=== PATIENT | female | born 1945 | race Two or more races ===

== ENCOUNTER → 2022-11-26 | Outpatient (CLI) | payer OTHER ==
[~2022-11-26] MED LIST: REGADENOSON 0.4 MG/5 ML SYRG IV ONE
[2022-11-26 08:15] VITALS: BP 191/88; PULSE 56; RESP 20
== END | disposition home or self-care (01) ==
LOC: XYW 07:20
PROVIDERS: ATTEND Internal Medicine
DX: Z01.810 Encounter for preprocedural cardiovascular examination (principal); I11.9 Hypertensive heart disease without heart failure; E11.9 Type 2 diabetes mellitus without complications; E03.9 Hypothyroidism, unspecified; E78.00 Pure hypercholesterolemia, unspecified
CPT/HCPCS: 78452; 93017; A9500; J2785

== ENCOUNTER 2023-02-23 13:02 | Inpatient (IN) | payer OTHER, MEDICAID ==
[~2023-02-23] VITALS: Ht 142.2 cm; Wt 89.3 kg
[2023-02-23] MEDS ORDERED: SODIUM CHLORIDE 0.9% 1,000 ML IV ONE (13:15)
[2023-02-23] MEDS ORDERED: levoFLOXacin 500MG 100 ML IV ONE (13:15)
[2023-02-23] MEDS ORDERED: VANCOMYCIN 1GM/250ML 250 ML IV ONE (13:15)
[2023-02-23 14:03] VITALS: PULSE 67; RESP 18; O2SAT 94
[2023-02-23 14:24] LABS: Basophils # (auto) 0.1 10 ^3/uL (0-0.2); Hemoglobin 10.7 g/dL (12.2-16.2); Neutrophils # (auto) 4.6 10 ^3/uL (1.6-8.6)
[2023-02-23 14:26] LABS: Basophils % (auto) 0.6 % (0.0-2.0); Eosinophils # (auto) 0.3 10 ^3/uL (0-0.8); Eosinophils % (auto) 3.2 % (0.0-7.0); Hematocrit 32.5 % (36.0-46.0); Lymphocytes % (auto) 25.3 % (10.0-50.0); Mean Corpuscular Hemoglobin 26.7 pg (28.0-32.0); Mean Corpuscular Hgb Conc. 32.8 g/dL (32.0-36.0); Mean Corpuscular Volume 81.4 fL (80.0-100.0); Monocytes % (auto) 12.3 % (0.0-12.0); Neutrophils % (auto) 58.6 % (37.0-80.0); Red Cell Distribution Width 18.9 % (11.8-14.3); White Blood Cell 7.8 10^3/uL (4.4-10.8)
[2023-02-23 14:47] LABS: INR 1.1 (0.9-1.15); Partial Thromboplastin Time 39.8 SEC (24.5-34.5); Prothrombin Time 11.5 sec (9.3-11.8)
[2023-02-23 15:12] LABS: Lactic Acid w/Reflex 2.3 mmol/L (0.4-2.0)
[2023-02-23 15:15] LABS: Alanine Aminotransferase 40 U/L (7-40); Albumin 3.8 g/dL (3.2-4.8); Alkaline Phosphatase 175 U/L (46-116); Anion Gap 5 (5-15); Aspartate Aminotransferase 47 U/L (13-40); BUN/Creatinine Ratio 13.8 (10.0-20.0); Bilirubin, Total 0.2 mg/dL (0.2-1.0); Blood Urea Nitrogen 20 mg/dL (9-23); Calcium 9.1 mg/dL (8.7-10.4); Carbon Dioxide 23 mmol/L (20-30); Chloride 96 mmol/L (98-107); Glucose 76 mg/dL (74-106); Sodium 124 mmol/L (136-145); Total Protein 6.9 g/dL (5.7-8.2)
[2023-02-23 15:25] LABS: Potassium 6.4 mmol/L (3.5-5.1)
[2023-02-23 16:27] LABS: Urine Bacteria NONE SEEN /hpf (None Seen); Urine Blood Negative /uL (Negative); Urine Clarity Clear (Clear); Urine Color Colorless (Yellow); Urine Protein, UAD TRACE (Negative); Urine Specific Gravity 1.011 (1.001-1.035); Urine Urobilinogen Normal (Negative); Urine WBC <1 /hpf (0 - 5)
[2023-02-23] MEDS ORDERED: FUROSEMIDE 20 MG/2 ML VIAL IV ONE (16:30)
[2023-02-23] MEDS ORDERED: InsuLIN REG 1unit/0.01ml Soln (100units/ml) IV ONE ×2 (16:30→20:30)
[2023-02-23] MEDS ORDERED: DEXTROSE (50%) 50ML SYRG IV ONE ×2 (16:30→20:30)
[2023-02-23] MEDS ORDERED: SODIUM ZIRCONIUM CYCL 10 GM PAK PO ONE (16:30)
[2023-02-23] MEDS ORDERED: SODIUM BICARBONATE 8.4% INJ 50ML SYRINGE IV ONE ×2 (16:30→20:30)
[2023-02-23] MEDS ORDERED: CALCIUM GLUC 1,000mg/50ml-NS 50 ML IV ONE ×2 (16:30→20:30)
[2023-02-23] MEDS ORDERED: ALBUTEROL SULF 2.5 MG/0.5ML(0.5%) NEB SOLN NEB ONE (16:30)
[2023-02-23] MEDS ORDERED: MORPHINE SULFATE INJ 2 MG/ml SYRG IV PRN (18:30)
[2023-02-23] MEDS ORDERED: LACTULOSE 20Gm/30ML SOLN PO PRN (18:30)
[2023-02-23] MEDS: DOXYCYCLINE 100MG/250ML 250 ML IV SCH (18:30)
[2023-02-23] MEDS: SODIUM CHLORIDE 0.9% 1,000 ML IV SCH (18:30)
[2023-02-23] MEDS ORDERED: NITROGLYCERIN 0.4 MG SL TAB SL PRN (18:30)
[2023-02-23 18:51] LABS: Chloride 96 mmol/L (98-107); Sodium 123 mmol/L (136-145)
[2023-02-23 18:52] LABS: Anion Gap 7 (5-15); Carbon Dioxide 20 mmol/L (20-30)
[2023-02-23 18:53] LABS: Calcium 8.7 mg/dL (8.5-10.1)
[2023-02-23 18:57] LABS: BUN/Creatinine Ratio 15.2 (10.0-20.0); Blood Urea Nitrogen 20 mg/dL (9-23); Glucose 92 mg/dL (74-106)
[2023-02-23 19:48] LABS: Lactic Acid w/Reflex 4.1 mmol/L (0.4-2.0)
[2023-02-23 20:00] VITALS: PULSE 74; RESP 16; O2SAT 93
[2023-02-23 21:49] LABS: Chloride 94 mmol/L (98-107); Potassium 5.1 mmol/L (3.5-5.1); Sodium 123 mmol/L (136-145)
[2023-02-23 21:50] LABS: Anion Gap 6 (5-15); Calcium 8.8 mg/dL (8.7-10.4); Carbon Dioxide 23 mmol/L (20-30)
[2023-02-23 21:55] LABS: BUN/Creatinine Ratio 14.5 (10.0-20.0); Blood Urea Nitrogen 21 mg/dL (9-23); Glucose 158 mg/dL (74-106)
[2023-02-23] MEDS: SENNA 8.6 MG TAB PO SCH (23:40)
[2023-02-24] VITALS (12 sets, daily range): BP systolic 117–160; BP diastolic 22–50; PULSE 69–88; RESP 17–22; TEMP 97.7–98.2; O2SAT 93–99
[2023-02-24 01:30] LABS: Lactic Acid w/Reflex 2.7 mmol/L (0.4-2.0)
[2023-02-24] MEDS: SODIUM CHLORIDE 0.9% 1,000 ML IV SCH ×3 (05:00→18:15)
[2023-02-24] MEDS: DOXYCYCLINE 100MG/250ML 250 ML IV SCH (05:59)
[2023-02-24 07:10] LABS: Basophils # (auto) 0.1 10 ^3/uL (0-0.2); Eosinophils # (auto) 0.2 10 ^3/uL (0-0.8); Neutrophils # (auto) 4.7 10 ^3/uL (1.6-8.6)
[2023-02-24 07:14] LABS: Basophils % (auto) 0.8 % (0.0-2.0); Hematocrit 31.4 % (36.0-46.0); Hemoglobin 10.3 g/dL (12.2-16.2); Lymphocytes # (auto) 1.3 10 ^3/uL (0.4-5.4); Lymphocytes % (auto) 18.5 % (10.0-50.0); Mean Corpuscular Hemoglobin 26.8 pg (28.0-32.0); Mean Corpuscular Hgb Conc. 32.8 g/dL (32.0-36.0); Mean Corpuscular Volume 81.8 fL (80.0-100.0); Monocytes # (auto) 0.9 10 ^3/uL (0-1.3); Monocytes % (auto) 12.7 % (0.0-12.0); Nucleated Red Blood Cells % 0.1 %; Red Blood Cells 3.84 10^6/uL (4.0-5.20); White Blood Cell 7.2 10^3/uL (4.4-10.8)
[2023-02-24 07:22] LABS: Chloride 94 mmol/L (98-107); Sodium 124 mmol/L (136-145)
[2023-02-24 07:23] LABS: Anion Gap 5 (5-15); Calcium 8.9 mg/dL (8.5-10.1); Carbon Dioxide 25 mmol/L (20-30)
[2023-02-24 07:28] LABS: Blood Urea Nitrogen 16 mg/dL (9-23); Glucose 108 mg/dL (74-106)
[2023-02-24 07:34] LABS: Potassium 6.1 mmol/L (3.5-5.1)
[2023-02-24] MEDS ORDERED: SODIUM BICARBONATE 8.4% INJ 50ML SYRINGE IV ONE (08:00)
[2023-02-24] MEDS ORDERED: DEXTROSE (50%) 50ML SYRG IV ONE (08:00)
[2023-02-24] MEDS ORDERED: SODIUM ZIRCONIUM CYCL 10 GM PAK PO ONE (08:00)
[2023-02-24] MEDS ORDERED: InsuLIN REG 1unit/0.01ml Soln (100units/ml) IV ONE (08:00)
[2023-02-24] MEDS ORDERED: ALBUTEROL SULF 2.5 MG/0.5ML(0.5%) NEB SOLN NEB ONE (08:00)
[2023-02-24] MEDS ORDERED: CALCIUM GLUC 1,000mg/50ml-NS 50 ML IV ONE (08:00)
[2023-02-24] MEDS ORDERED: ALBUTEROL SULF 2.5 MG/0.5ML(0.5%) NEB SOLN ONE (08:12)
[2023-02-24] MEDS: ENOXAPARIN SOD 40 MG/0.4 ML SYRINGE SC SCH (09:24)
[2023-02-24] MEDS: FAMOTIDINE 20 MG TAB PO SCH (09:24)
[2023-02-24] MEDS: HYDROcodone-ACET 5/325MG TAB PO PRN (10:57)
[2023-02-24 11:16] LABS: Uric Acid 4.6 mg/dL (3.1-7.8)
[2023-02-24 11:19] LABS: Phosphorus 4.5 mg/dL (2.4-5.1)
[2023-02-24 12:02] LABS: Protein, Urine 34.4 mg/dL (0.0-11.9)
[2023-02-24 12:04] LABS: Creatinine, Urine 37.5 mg/dL (30.0-125.0); Urine Protein/Creatinine Ratio 0.92
[2023-02-24] MEDS: SODIUM ZIRCONIUM CYCL 10 GM PAK PO SCH ×3 (13:03→21:50)
[2023-02-24] MEDS: BUMETANIDE 1mg/4ml VIAL (0.25mg/ml) IV SCH ×2 (13:04→17:53)
[2023-02-24] MEDS: levoFLOXacin 250MG 50 ML IV SCH (17:52)
[2023-02-24] MEDS ORDERED: DEXTROSE (50%) 50ML SYRG IV PRN (18:30)
[2023-02-24 19:03] LABS: Chloride 97 mmol/L (98-107); Potassium 4.8 mmol/L (3.5-5.1); Sodium 128 mmol/L (136-145)
[2023-02-24 19:04] LABS: Anion Gap 5 (5-15); Carbon Dioxide 26 mmol/L (20-30)
[2023-02-24 19:05] LABS: Calcium 9.5 mg/dL (8.7-10.4)
[2023-02-24 19:09] LABS: BUN/Creatinine Ratio 13.6 (10.0-20.0); Blood Urea Nitrogen 15 mg/dL (9-23); Glucose 112 mg/dL (74-106)
[2023-02-24] MEDS: SENNA 8.6 MG TAB PO SCH (21:50)
[2023-02-24] MEDS: LINEZOLID 600MG/300ML 300 ML IV SCH (21:50)
[2023-02-24] MEDS ORDERED: PATIENTS OWN MEDICATION (linezolid 600 MG) IV SCH (22:00)
[2023-02-24] MEDS ORDERED: TEMAZEPAM 15 MG CAP PO ONE (22:00)
[2023-02-24] MEDS: ACCU-CHEK COMFORT CURVE STRIP VI SCH (23:48)
[2023-02-24] MEDS: InsuLIN REG 1unit/0.01ml Soln (100units/ml) SC SCH (23:51)
[2023-02-25] VITALS (8 sets, daily range): BP systolic 153–168; BP diastolic 53–66; PULSE 68–78; RESP 18–20; TEMP 97.9–98.7; O2SAT 93–98
[2023-02-25] MEDS: SODIUM CHLORIDE 0.9% 1,000 ML IV SCH ×2 (04:00→09:17)
[2023-02-25] MEDS: InsuLIN REG 1unit/0.01ml Soln (100units/ml) SC SCH ×4 (06:00→23:49)
[2023-02-25] MEDS: SODIUM ZIRCONIUM CYCL 10 GM PAK PO SCH ×3 (06:05→22:00)
[2023-02-25] MEDS: BUMETANIDE 1mg/4ml VIAL (0.25mg/ml) IV SCH (06:05)
[2023-02-25] MEDS: ACCU-CHEK COMFORT CURVE STRIP VI SCH ×3 (06:06→23:41)
[2023-02-25 07:45] LABS: Eosinophils # (auto) 0.2 10 ^3/uL (0-0.8); Hemoglobin 11.8 g/dL (12.2-16.2); Monocytes # (auto) 0.7 10 ^3/uL (0-1.3); Neutrophils # (auto) 3.4 10 ^3/uL (1.6-8.6)
[2023-02-25 07:46] LABS: Basophils # (auto) 0 10 ^3/uL (0-0.2); Basophils % (auto) 0.8 % (0.0-2.0); Eosinophils % (auto) 3.8 % (0.0-7.0); Hematocrit 35.8 % (36.0-46.0); Lymphocytes # (auto) 1.2 10 ^3/uL (0.4-5.4); Lymphocytes % (auto) 21.1 % (10.0-50.0); Mean Corpuscular Hemoglobin 26.8 pg (28.0-32.0); Mean Corpuscular Volume 81.1 fL (80.0-100.0); Monocytes % (auto) 13.4 % (0.0-12.0); Neutrophils % (auto) 60.9 % (37.0-80.0); Nucleated Red Blood Cells % 0.1 %; Red Blood Cells 4.42 10^6/uL (4.0-5.20); Red Cell Distribution Width 19.2 % (11.8-14.3); White Blood Cell 5.5 10^3/uL (4.4-10.8)
[2023-02-25 07:55] LABS: Chloride 96 mmol/L (98-107); Potassium 4.7 mmol/L (3.5-5.1); Sodium 129 mmol/L (136-145)
[2023-02-25 07:56] LABS: Anion Gap 5 (5-15); Carbon Dioxide 28 mmol/L (20-30)
[2023-02-25 07:57] LABS: Calcium 9.5 mg/dL (8.5-10.1)
[2023-02-25 08:01] LABS: BUN/Creatinine Ratio 11.3 (10.0-20.0); Blood Urea Nitrogen 11 mg/dL (9-23); Glucose 141 mg/dL (74-106)
[2023-02-25] MEDS: ONDANSETRON HCL 4 MG/2 ML VIAL IV PRN (09:09)
[2023-02-25] MEDS: LINEZOLID 600MG/300ML 300 ML IV SCH ×2 (09:09→22:30)
[2023-02-25] MEDS: ENOXAPARIN SOD 40 MG/0.4 ML SYRINGE SC SCH (09:09)
[2023-02-25] MEDS: FAMOTIDINE 20 MG TAB PO SCH (09:09)
[2023-02-25 09:18] LABS: Hepatitis B Surface Antigen Negative (Negative)
[2023-02-25 09:40] LABS: Hepatitis C Antibody Negative (Negative)
[2023-02-25] MEDS ORDERED: VALS40TA2 PO (10:04)
[2023-02-25] MEDS ORDERED: METO25TA5 PO (10:04)
[2023-02-25] MEDS ORDERED: diphenhdrAMINE HCL 25 MG CAP PO PRN (10:15)
[2023-02-25] MEDS: METOPROLOL TARTRATE 25 MG TAB PO SCH ×2 (10:56→22:28)
[2023-02-25] MEDS: levoFLOXacin 250MG 50 ML IV SCH (14:21)
[2023-02-25] MEDS: MORPHINE SULFATE INJ 2 MG/ml SYRG IV PRN (22:36)
[2023-02-25] MEDS: SENNA 8.6 MG TAB PO SCH (23:12)
[2023-02-26] VITALS (9 sets, daily range): BP systolic 127–188; BP diastolic 55–85; PULSE 61–86; RESP 16–18; TEMP 97.4–99; O2SAT 93–97
[2023-02-26] MEDS: ACCU-CHEK COMFORT CURVE STRIP VI SCH ×4 (00:26→18:00)
[2023-02-26] MEDS: hydrALAZINE HCL 10 MG TAB PO PRN ×3 (00:36→19:40)
[2023-02-26 06:57] LABS: Anion Gap 7 (5-15); Carbon Dioxide 25 mmol/L (20-30); Chloride 95 mmol/L (98-107); Potassium 3.8 mmol/L (3.5-5.1); Sodium 127 mmol/L (136-145)
[2023-02-26] MEDS: SODIUM ZIRCONIUM CYCL 10 GM PAK PO SCH (06:59)
[2023-02-26] MEDS: InsuLIN REG 1unit/0.01ml Soln (100units/ml) SC SCH ×3 (06:59→18:00)
[2023-02-26 07:03] LABS: BUN/Creatinine Ratio 11.6 (10.0-20.0); Blood Urea Nitrogen 11 mg/dL (9-23); Glucose 127 mg/dL (74-106)
[2023-02-26] MEDS: ENOXAPARIN SOD 40 MG/0.4 ML SYRINGE SC SCH (09:10)
[2023-02-26] MEDS: FAMOTIDINE 20 MG TAB PO SCH (09:10)
[2023-02-26] MEDS: ONDANSETRON HCL 4 MG/2 ML VIAL IV PRN ×2 (09:10→19:00)
[2023-02-26] MEDS: BUMETANIDE 1mg/4ml VIAL (0.25mg/ml) IV SCH (09:11)
[2023-02-26] MEDS: METOPROLOL TARTRATE 25 MG TAB PO SCH ×2 (09:11→22:20)
[2023-02-26] MEDS: LINEZOLID 600MG/300ML 300 ML IV SCH ×2 (09:12→21:15)
[2023-02-26] MEDS ORDERED: VALS1TAB58 PO ×2 (09:14→09:28)
[2023-02-26] MEDS ORDERED: ATOR20TA50 PO (09:28)
[2023-02-26] MEDS ORDERED: GABA-1250 PO (09:28)
[2023-02-26] MEDS ORDERED: CLON0.5T3 PO (09:28)
[2023-02-26] MEDS ORDERED: DOCU-94 PO (09:28)
[2023-02-26] MEDS ORDERED: CHOL20007 PO (09:28)
[2023-02-26] MEDS ORDERED: APIX5TAB PO (09:28)
[2023-02-26] MEDS ORDERED: FER325T PO (09:28)
[2023-02-26] MEDS ORDERED: METF-372 PO (09:28)
[2023-02-26] MEDS ORDERED: OMEG-20 PO (09:28)
[2023-02-26] MEDS ORDERED: LEVO25TA6 PO (09:28)
[2023-02-26] MEDS ORDERED: GLIP5TAB12 PO (09:28)
[2023-02-26] MEDS ORDERED: VALSARTAN 80 MG TAB PO ONE (12:00)
[2023-02-26] MEDS: levoFLOXacin 250MG 50 ML IV SCH (12:21)
[2023-02-26] MEDS ORDERED: LIDOCAINE 1% (LOCAL ANESTH.) PF 5ml SDV ID ONE (18:00)
[2023-02-26] MEDS ORDERED: clonazePAM 0.5 MG TAB PO PRN (19:38)
[2023-02-26] MEDS: MORPHINE SULFATE INJ 2 MG/ml SYRG IV PRN (21:12)
[2023-02-26] MEDS: ATORVASTATIN 20 MG TAB PO SCH (21:16)
[2023-02-26] MEDS: SODIUM CHLOR 0.9% PF (SALINE LOCK) 10ML VIAL/SYR IV SCH (21:16)
[2023-02-26] MEDS ORDERED: VALSARTAN 80 MG TAB PO SCH (22:00)
[2023-02-26] MEDS: SENNA 8.6 MG TAB PO SCH (22:20)
[2023-02-27] VITALS (9 sets, daily range): BP systolic 156–184; BP diastolic 50–67; PULSE 61–93; RESP 14–19; TEMP 97.4–97.9; O2SAT 92–95
[2023-02-27] MEDS: ACCU-CHEK COMFORT CURVE STRIP VI SCH ×4 (00:32→17:32)
[2023-02-27] MEDS: InsuLIN REG 1unit/0.01ml Soln (100units/ml) SC SCH ×4 (00:32→17:32)
[2023-02-27] MEDS: LEVOTHYROXINE SODIUM 25 MCG TAB PO SCH (06:20)
[2023-02-27] MEDS: GABAPENTIN 300 MG CAP PO SCH ×3 (06:20→21:15)
[2023-02-27 07:03] LABS: Calcium 8.8 mg/dL (8.5-10.1); Chloride 92 mmol/L (98-107); Potassium 3.5 mmol/L (3.5-5.1); Sodium 127 mmol/L (136-145)
[2023-02-27 07:04] LABS: Anion Gap 7 (5-15); Carbon Dioxide 28 mmol/L (20-30)
[2023-02-27 07:09] LABS: BUN/Creatinine Ratio 8.5 (10.0-20.0); Blood Urea Nitrogen 8 mg/dL (9-23); Glucose 131 mg/dL (74-106)
[2023-02-27] MEDS: FERROUS SULFATE 325mg EC TAB PO SCH (08:59)
[2023-02-27] MEDS: VALSARTAN 80 MG TAB PO SCH (09:00)
[2023-02-27] MEDS: hydrALAZINE HCL 10 MG TAB PO PRN (09:00)
[2023-02-27] MEDS: CHOLECALCIFEROL (VITD3) 1,000UNIT=25mCg TAB PO SCH (09:01)
[2023-02-27] MEDS: METOPROLOL TARTRATE 25 MG TAB PO SCH ×2 (09:01→21:15)
[2023-02-27] MEDS: LORATADINE 10 MG TAB PO SCH (09:01)
[2023-02-27] MEDS: FAMOTIDINE 20 MG TAB PO SCH (09:01)
[2023-02-27] MEDS: BUMETANIDE 1mg/4ml VIAL (0.25mg/ml) IV SCH (09:02)
[2023-02-27] MEDS: SODIUM CHLOR 0.9% PF (SALINE LOCK) 10ML VIAL/SYR IV SCH ×2 (09:02→21:23)
[2023-02-27] MEDS: LINEZOLID 600MG/300ML 300 ML IV SCH ×2 (09:04→21:14)
[2023-02-27] MEDS ORDERED: amLODIPine BESYLATE 5 MG TAB PO ONE (09:30)
[2023-02-27] MEDS: APIXABAN 5 MG TAB PO SCH ×2 (10:00→21:14)
[2023-02-27] MEDS ORDERED: GABAPENTIN 300 MG CAP PO SCH (10:00)
[2023-02-27] MEDS: levoFLOXacin 250MG 50 ML IV SCH (11:51)
[2023-02-27] MEDS ORDERED: clonazePAM 0.5 MG TAB PO PRN (15:00)
[2023-02-27] MEDS: ATORVASTATIN 20 MG TAB PO SCH (21:15)
[2023-02-27] MEDS: SENNA 8.6 MG TAB PO SCH (21:15)
[2023-02-28] MEDS: ACCU-CHEK COMFORT CURVE STRIP VI SCH ×5 (00:31→23:47)
[2023-02-28] MEDS: InsuLIN REG 1unit/0.01ml Soln (100units/ml) SC SCH ×5 (00:31→23:47)
[2023-02-28 05:00] VITALS: BP 150/59; PULSE 66; RESP 18; TEMP 97.7; O2SAT 95
[2023-02-28] MEDS: LEVOTHYROXINE SODIUM 25 MCG TAB PO SCH (06:18)
[2023-02-28] MEDS: GABAPENTIN 300 MG CAP PO SCH ×3 (06:19→21:08)
[2023-02-28 06:58] LABS: Chloride 91 mmol/L (98-107); Sodium 125 mmol/L (136-145)
[2023-02-28 06:59] LABS: Anion Gap 9 (5-15); Calcium 8.5 mg/dL (8.7-10.4); Carbon Dioxide 25 mmol/L (20-30)
[2023-02-28 07:04] LABS: BUN/Creatinine Ratio 12.5 (10.0-20.0); Blood Urea Nitrogen 11 mg/dL (9-23); Glucose 142 mg/dL (74-106)
[2023-02-28 08:00] VITALS: PULSE 59; PULSE 66
[2023-02-28 09:00] VITALS: BP 139/52; PULSE 60; RESP 19; TEMP 97.8; O2SAT 96
[2023-02-28] MEDS: BUMETANIDE 1mg/4ml VIAL (0.25mg/ml) IV SCH (10:00)
[2023-02-28] MEDS: LINEZOLID 600MG/300ML 300 ML IV SCH (10:26)
[2023-02-28] MEDS: amLODIPine BESYLATE 5 MG TAB PO SCH (10:27)
[2023-02-28] MEDS: METOPROLOL TARTRATE 25 MG TAB PO SCH ×2 (10:28→21:08)
[2023-02-28] MEDS: FAMOTIDINE 20 MG TAB PO SCH (10:28)
[2023-02-28] MEDS: VALSARTAN 80 MG TAB PO SCH (10:28)
[2023-02-28] MEDS: FERROUS SULFATE 325mg EC TAB PO SCH (10:28)
[2023-02-28] MEDS: APIXABAN 5 MG TAB PO SCH ×2 (10:28→21:09)
[2023-02-28] MEDS: CHOLECALCIFEROL (VITD3) 1,000UNIT=25mCg TAB PO SCH (10:34)
[2023-02-28] MEDS: LORATADINE 10 MG TAB PO SCH (10:34)
[2023-02-28] MEDS: SODIUM CHLOR 0.9% PF (SALINE LOCK) 10ML VIAL/SYR IV SCH ×2 (10:39→21:19)
[2023-02-28] MEDS: levoFLOXacin 250MG 50 ML IV SCH (12:00)
[2023-02-28 13:00] VITALS: BP 138/69; PULSE 74; RESP 19; TEMP 98; O2SAT 94
[2023-02-28] MEDS ORDERED: POTASSIUM CHL 20 Meq TABLET PO ONE (13:15)
[2023-02-28] MEDS ORDERED: POTASSIUM CHLORIDE 40 MEQ, LIDOCAINE 1% (LOCAL ANESTH.) 4 ML in SODIUM CHL 0.9% 250 ML IV ONE (13:30)
[2023-02-28 17:00] VITALS: BP 129/45; PULSE 66; RESP 18; TEMP 97.1; O2SAT 94
[2023-02-28] MEDS: UREA 15gm PO Powder PKG PO SCH (17:24)
[2023-02-28 20:00] VITALS: PULSE 80
[2023-02-28] MEDS: hydrALAZINE HCL 10 MG TAB PO PRN (20:19)
[2023-02-28] MEDS: SENNA 8.6 MG TAB PO SCH (20:51)
[2023-02-28] MEDS: HYDROcodone-ACET 5/325MG TAB PO PRN (21:08)
[2023-02-28] MEDS: ATORVASTATIN 20 MG TAB PO SCH (21:09)
[2023-03-01] VITALS (8 sets, daily range): BP systolic 128–154; BP diastolic 49–71; PULSE 65–83; RESP 16–19; TEMP 97.6–98.7; O2SAT 92–97
[2023-03-01 05:34] LABS: Basophils # (auto) 0.1 10 ^3/uL (0-0.2); Basophils % (auto) 0.9 % (0.0-2.0); Eosinophils # (auto) 0.3 10 ^3/uL (0-0.8); Neutrophils # (auto) 4.8 10 ^3/uL (1.6-8.6); Red Cell Distribution Width 18.1 % (11.8-14.3)
[2023-03-01 05:36] LABS: Calcium 8.9 mg/dL (8.5-10.1); Chloride 97 mmol/L (98-107); Potassium 3.6 mmol/L (3.5-5.1)
[2023-03-01 05:37] LABS: Anion Gap 8 (5-15); Carbon Dioxide 26 mmol/L (20-30); Eosinophils % (auto) 3.4 % (0.0-7.0); Hematocrit 34.3 % (36.0-46.0); Hemoglobin 11.4 g/dL (12.2-16.2); Lymphocytes % (auto) 24.2 % (10.0-50.0); Mean Corpuscular Hemoglobin 26.9 pg (28.0-32.0); Mean Corpuscular Hgb Conc. 33.3 g/dL (32.0-36.0); Mean Corpuscular Volume 80.8 fL (80.0-100.0); Neutrophils % (auto) 59.5 % (37.0-80.0); Red Blood Cells 4.25 10^6/uL (4.0-5.20); White Blood Cell 8.1 10^3/uL (4.4-10.8)
[2023-03-01 05:43] LABS: BUN/Creatinine Ratio 37.6 (10.0-20.0); Glucose 129 mg/dL (74-106)
[2023-03-01 06:04] LABS: Blood Urea Nitrogen 35 mg/dL (9-23); Sodium 131 mmol/L (136-145)
[2023-03-01] MEDS: LEVOTHYROXINE SODIUM 25 MCG TAB PO SCH (06:20)
[2023-03-01] MEDS: GABAPENTIN 300 MG CAP PO SCH ×3 (06:20→21:16)
[2023-03-01] MEDS: ACCU-CHEK COMFORT CURVE STRIP VI SCH ×4 (06:24→23:18)
[2023-03-01] MEDS: InsuLIN REG 1unit/0.01ml Soln (100units/ml) SC SCH ×4 (06:25→23:20)
[2023-03-01] MEDS ORDERED: PATIENTS OWN MEDICATION (ertapenem 1 GM) IV SCH (10:00)
[2023-03-01] MEDS ORDERED: FUROSEMIDE 40 MG/4 ML VIAL IV SCH (10:00)
[2023-03-01] MEDS ORDERED: ERTAPENEM SOD INJ 1 GM in SODIUM CHL 0.9% 50 ML IV SCH (10:00)
[2023-03-01] MEDS: VALSARTAN 80 MG TAB PO SCH (10:12)
[2023-03-01] MEDS: FAMOTIDINE 20 MG TAB PO SCH (10:12)
[2023-03-01] MEDS: CHOLECALCIFEROL (VITD3) 1,000UNIT=25mCg TAB PO SCH (10:12)
[2023-03-01] MEDS: HYDROcodone-ACET 5/325MG TAB PO PRN (10:12)
[2023-03-01] MEDS: FERROUS SULFATE 325mg EC TAB PO SCH (10:12)
[2023-03-01] MEDS: LORATADINE 10 MG TAB PO SCH (10:12)
[2023-03-01] MEDS: amLODIPine BESYLATE 5 MG TAB PO SCH (10:13)
[2023-03-01] MEDS: APIXABAN 5 MG TAB PO SCH ×2 (10:13→21:16)
[2023-03-01] MEDS: METOPROLOL TARTRATE 25 MG TAB PO SCH ×2 (10:13→21:23)
[2023-03-01] MEDS: SODIUM CHLOR 0.9% PF (SALINE LOCK) 10ML VIAL/SYR IV SCH ×2 (10:14→21:23)
[2023-03-01] MEDS: UREA 15gm PO Powder PKG PO SCH (10:20)
[2023-03-01] MEDS ORDERED: SOD CHL 0.9%/ KCL 20MEQ 1,000 ML IV SCH (11:00)
[2023-03-01 12:49] LABS: Magnesium 1.5 mg/dL (1.6-2.6)
[2023-03-01] MEDS ORDERED: POTASSIUM CHL 20 Meq TABLET PO ONE (15:30)
[2023-03-01] MEDS: ATORVASTATIN 20 MG TAB PO SCH (21:16)
[2023-03-02 04:57] VITALS: BP 152/63; PULSE 78; RESP 19; TEMP 98; O2SAT 92
[2023-03-02 06:10] LABS: Chloride 101 mmol/L (98-107); Potassium 4.3 mmol/L (3.5-5.1); Sodium 133 mmol/L (136-145)
[2023-03-02 06:12] LABS: Calcium 9.1 mg/dL (8.7-10.4)
[2023-03-02 06:16] LABS: Glucose 151 mg/dL (74-106)
[2023-03-02 06:17] LABS: BUN/Creatinine Ratio 38.5 (10.0-20.0); Blood Urea Nitrogen 37 mg/dL (9-23)
[2023-03-02] MEDS: LEVOTHYROXINE SODIUM 25 MCG TAB PO SCH (06:22)
[2023-03-02] MEDS: ACCU-CHEK COMFORT CURVE STRIP VI SCH ×2 (06:22→15:32)
[2023-03-02] MEDS: GABAPENTIN 300 MG CAP PO SCH ×2 (06:22→15:35)
[2023-03-02] MEDS: InsuLIN REG 1unit/0.01ml Soln (100units/ml) SC SCH ×2 (06:24→12:00)
[2023-03-02 07:03] LABS: Anion Gap 8 (5-15); Carbon Dioxide 24 mmol/L (20-30)
[2023-03-02 08:00] VITALS: PULSE 75; PULSE 76
[2023-03-02 09:39] VITALS: BP 130/52; PULSE 72; RESP 19; TEMP 97.5; O2SAT 98
[2023-03-02] MEDS: UREA 15gm PO Powder PKG PO SCH (10:00)
[2023-03-02] MEDS ORDERED: CEFTRIAXONE SODIUM 2 GM in D5W 5% 100 ML IV SCH (10:00)
[2023-03-02] MEDS: SODIUM CHLOR 0.9% PF (SALINE LOCK) 10ML VIAL/SYR IV SCH (10:34)
[2023-03-02] MEDS: FAMOTIDINE 20 MG TAB PO SCH (10:48)
[2023-03-02] MEDS: VALSARTAN 80 MG TAB PO SCH (10:48)
[2023-03-02] MEDS: LORATADINE 10 MG TAB PO SCH (10:48)
[2023-03-02] MEDS: CHOLECALCIFEROL (VITD3) 1,000UNIT=25mCg TAB PO SCH (10:49)
[2023-03-02] MEDS: APIXABAN 5 MG TAB PO SCH (10:49)
[2023-03-02] MEDS: FERROUS SULFATE 325mg EC TAB PO SCH (10:50)
[2023-03-02] MEDS: amLODIPine BESYLATE 5 MG TAB PO SCH (10:50)
[2023-03-02] MEDS: METOPROLOL TARTRATE 25 MG TAB PO SCH (10:50)
[2023-03-02 11:49] VITALS: BP 148/86; PULSE 67; RESP 20; TEMP 36.4; O2SAT 94
[2023-03-02 12:55] VITALS: BP 126/67; PULSE 88; RESP 19; TEMP 97.9; O2SAT 94
[2023-03-02] MEDS ORDERED: VALS1TAB56 PO (13:39)
[2023-03-02] MEDS ORDERED: AMLO1TAB23 PO (13:39)
[2023-03-02] MEDS ORDERED: CHL4PW PO (13:39)
[2023-03-02] MEDS ORDERED: LACTCAP35 OR (14:21)
[2023-03-02] MEDS: HYDROcodone-ACET 5/325MG TAB PO PRN (15:32)
[2023-03-02] MEDS ORDERED: CEFTRIAXONE SODIUM 2 GM in D5W 5% 100 ML IV ONE (16:00)
[2023-03-03 00:06] LABS: Cortisol Free ug/L Ur 14 ug/L (Undefined)
[2023-03-03] MEDS ORDERED: CEFTRIAXONE SODIUM 2 GM in D5W 5% 100 ML IV SCH (10:00)
== END 2023-03-02 18:25 | disposition home health service (06) | DRG 602 ==
LOC: EDBD 13:02 → ER 13:02 → TELE 18:37 → TELE-CENTR 02-24 03:28
PROVIDERS: ADMIT Hospitalist; ATTEND Hospitalist
PROC: 02HV33Z Insertion of Infusion Device into Superior Vena Cava, Percutaneous Approach (ICD-10-PCS; principal; 2023-02-26)
PROC: B548ZZA Ultrasonography of Superior Vena Cava, Guidance (ICD-10-PCS; 2023-02-26)
PROC: 05HF33Z Insertion of Infusion Device into Left Cephalic Vein, Percutaneous Approach (ICD-10-PCS; 2023-03-02)
PROC: B54NZZA Ultrasonography of Left Upper Extremity Veins, Guidance (ICD-10-PCS; 2023-03-02)
DX: L03.116 Cellulitis of left lower limb (principal); N17.0 Acute kidney failure with tubular necrosis; E87.1 Hypo-osmolality and hyponatremia; E87.20 Acidosis, unspecified; Z68.41 Body mass index [BMI] 40.0-44.9, adult; D63.1 Anemia in chronic kidney disease; E11.22 Type 2 diabetes mellitus with diabetic chronic kidney disease; E66.01 Morbid (severe) obesity due to excess calories; E87.5 Hyperkalemia; Z96.652 Presence of left artificial knee joint; E03.9 Hypothyroidism, unspecified; E78.00 Pure hypercholesterolemia, unspecified; I12.9 Hypertensive chronic kidney disease with stage 1 through stage 4 chronic kidney disease, or unspecified chronic kidney disease; N18.2 Chronic kidney disease, stage 2 (mild); Z88.0 Allergy status to penicillin; Z88.5 Allergy status to narcotic agent; Z90.49 Acquired absence of other specified parts of digestive tract; Z79.84 Long term (current) use of oral hypoglycemic drugs
CPT/HCPCS: 36415; 36569; 71045; 73700; 74176; 76775; 80048; 80053; 81001; 82306; 82530; 82533; 82570; 82962; 83605; 83735; 83880; 83930; 83935; 83970; 84100; 84132; 84156; 84300; 84484; 84550; 85025; 85610; 85730; 86803; 87040; 87045; 87077; 87081; 87186; 87205; 87340; 87427; 93306; 93970; 94640; 96365; 96367; 96368; 96375; 97110; 97116; 97163; 97530; 99291; G0378; J0696; J1335; J1815; J1956; J2001; J2405; J3490; J7060

== ENCOUNTER 2024-04-17 14:50 | Inpatient (IN) | payer OTHER, MEDICAID ==
[~2024-04-17] VITALS: Ht 162.6 cm; Wt 84.2 kg
[2024-04-17] MEDS: SODIUM CHLORIDE 0.9% 1,000 ML IV SCH (01:30)
[~2024-04-17 14:50] MED LIST changes: +AMLO1TAB23 PO; +APIX5TAB PO; +ATOR20TA50 PO; +CHL4PW PO; +CHOL20007 PO; +CLON0.5T3 PO; +FER325T PO; +GABA-1250 PO; +GLIP5TAB21 PO; +LACTCAP35 OR; +LEVO25TA6 PO; +METF-372 PO; +METO25TA5 PO; +OMEG-20 PO; -REGADENOSON 0.4 MG/5 ML SYRG IV ONE; +VALS1TAB56 PO
[2024-04-17] MEDS: SODIUM CHLORIDE 0.9% 1,000 ML IV ONE ×2 (15:45→21:17)
--- NOTE | 2024-04-17 16:35 | ED.PDOC ---
GI ASSESSMENT HPI Comments 78-year-old female presented with complaints of GI bleed. She recently had a colonoscopy last which revealed 7 mm polyp in the sigmoid colon that was removed, 3 mm rectal polyp which was removed, and nonbleeding internal hemorrhoids. She started having clots from the rectum on Wednesday visible on wiping, also had blood mixed in the stools. She also had complaints of lower abdominal pain and dizziness for last one day. Yesterday patient found her underwear stained with blood. She has stopped taking Eliquis eight days before the procedure but did not resume after the procedure. She took alendronate on Wednesday. She stopped taking NSAIDs after the procedure. She denied any constipation, diarrhea, melena, chest pain, shortness of breath, palpitations, generalized weakness, hematemesis. Past medical history Diabetes mellitus type 2, hypertension, hypothyroidism, hyperlipidemia, CKD, osteoporosis Past surgical history Cholecystectomy Hernia repair Left knee arthroplasty Medication history Alendronate, ondansetron, albuterol, cetirizine, pantoprazole, valsartan, Jardiance, Lasix, donepezil, atorvastatin, metoprolol, levothyroxine, amlodipine, glipizide, clonazepam, pregabalin, cyclobenzaprine, Eliquis Social history Denied smoking, alcohol, marijuana or any other drug intake Allergic history Penicillins, tramadol Family history Noncontributory Review of system As addressed in HPI Examination General Appearance: Alert, Oriented X3, Cooperative, No acute distress EYES : no erythema, pupils reactive, no scleral icterus, no tearing visible Respiratory: Bilateral air entry present, no wheezes, no crackles Cardiovascular: Regular rate, Normal S1, Normal S2, no S3, no S4, no murmurs Abdominal: Mild abdominal tenderness, no guarding, no rigidity, no rebound tenderness Extremities: No cyanosis, No edema, Normal pulses, No tenderness/swelling Skin: No rashes, No breakdown Neuro: Normal speech and tone, no nystagmus, cranial nerves grossly intact Chief Complaint: GI Bleed Time Seen by MD: 15:59 Primary Care Provider: JUANJO Reviewed Notes: Nurses Notes, Medications, Allergies Allergies: Coded Allergies: Tramadol (Verified Allergy, Severe, 02/23/23) Penicillins (Verified Allergy, Mild, 03/02/23) Experienced hives over 10 years and previously on amoxicillin x 3 days with no reaction Home Meds Active Scripts Lactobacillus (PROBIOTIC) Cap, 1 CAP OR DAILY, #30 CAP Prov:PANDA CHANEY MD 03/02/23 Cholestyramine (QUESTRAN POWDER) 4 Gm Pw, 4 GM PO Q8HPRN PRN, #30 POW give as needed for more than 3 large loose stools in a day Prov:PANDA CHANEY MD 03/02/23 Valsartan (Valsartan) 40 Mg Tab, 40 MG PO DAILY, #30 TAB Prov:PANDA CHANEY MD 03/02/23 Amlodipine Besylate (Amlodipine Besylate) 10 Mg Tab, 1 TAB PO DAILY, #90 TAB 1 Refill Prov:PANDA CHANEY MD 03/02/23 Reported Medications Clonazepam (KlonoPIN TABLET) 0.5 Mg Tb, 1 TAB PO DAILY, #30 TAB 02/26/23 Empire-3 Fatty Acids (FISH OIL) 1,000 Mg Cap, 1000 MG PO DAILY, CAP 02/26/23 Cholecalciferol (VITAMIN D3) 2,000 Unit Tab, 26463 UNIT PO DAILY, TAB 02/26/23 Glipizide (Glipizide) 5 Mg Tab, 1 TAB PO BID, #60 TAB 3 Refills 02/26/23 Atorvastatin Calcium (ATORVASTATIN CALCIUM) 20 Mg Tab, 1 TAB PO DAILY, #30 TAB 5 Refills 02/26/23 Ferrous Sulfate (FERROUS SULFATE) 325 Mg Tb, 325 MG PO DAILY, TAB 02/26/23 Gabapentin (Gabapentin) 300 Mg Cap, 1 CAP PO DAILY, #90 CAP 5 Refills 02/26/23 Apixaban Base (ELIQUIS) 5 Mg Tab, 5 MG PO BID, TAB 02/26/23 Metformin Hydrochloride (Metformin Hcl) 1,000 Mg Tab, 1 TAB PO BID, #60 TAB 5 Refills 02/26/23 Levothyroxine Sodium (Levothyroxine Sodium) 25 Mcg Tab, 1 TAB PO DAILY, #30 TAB 5 Refills 02/26/23 Metoprolol Tartrate (Metoprolol Tartrate) 25 Mg Tab, 50 MG PO BID for 30 Days, MG 02/25/23 Information Source: Patient, Relative (Child) Mode of Arrival: Wheelchair Was a procedure done? Was a procedure done?: No GI differential Dx Differential Diagnosis: Appendicitis, Aortic dissection, Bowel Obstruction, Cholangitis, Cholecystitis, Constipation, Diverticular disease, Gastritis/PUD, GI hemorrhage, Ischemic Bowel, UTI, Electrolyte Imbalance, Impaction, Ischemic Bowel X-Ray, Labs, Meds, VS Vital Signs Date Time Temp Pulse Resp B/P (MAP) Pulse Ox O2 Delivery O2 Flow Rate FiO2 04/17/24 17:03 97.6 60 16 122/39 (66) 95 97.6 04/17/24 17:03 60 16 95 Room Air* 0 21 04/17/24 15:15 55 04/17/24 14:58 97.5 58 20 117/34 (61) 95 Lab Test 04/17/24 16:50 04/17/24 15:04 Range/Units White Blood Count 6.0 4.4-10.8 10^3/uL Red Blood Count 3.98 L 4.0-5.20 10^6/uL Hemoglobin 8.5 L 12.2-16.2 g/dL Hematocrit 27.6 L 36.0-46.0 % Mean Corpuscular Volume 69.2 L 80.0-100.0 fL Mean Corpuscular Hemoglobin 21.3 L 28.0-32.0 pg Mean Corpuscular Hemoglobin Concent 30.8 L 32.0-36.0 g/dL Red Cell Distribution Width 17.0 H 11.8-14.3 % Platelet Count 238 140-450 10^3/uL Mean Platelet Volume 8.3 6.9-10.8 fL Neutrophils (%) (Auto) 47.8 37.0-80.0 % Lymphocytes (%) (Auto) 35.8 10.0-50.0 % Monocytes (%) (Auto) 11.9 0.0-12.0 % Eosinophils (%) (Auto) 3.0 0.0-7.0 % Basophils (%) (Auto) 1.5 0.0-2.0 % Neutrophils # (Auto) 2.9 1.6-8.6 10 ^3/uL Lymphocytes # (Auto) 2.2 0.4-5.4 10 ^3/uL Monocytes # (Auto) 0.7 0-1.3 10 ^3/uL Eosinophils # (Auto) 0.2 0-0.8 10 ^3/uL Basophils # (Auto) 0.1 0-0.2 10 ^3/uL Nucleated Red Blood Cells 0.0 % Platelet Estimate Adequate Hypochromasia (manual) Slight Microcytosis Slight Prothrombin Time 11.4 9.3-11.8 sec Prothrombin Time INR 1.08 0.9-1.15 Activated Partial Thromboplast Time 27.9 24.5-34.5 SEC Sodium Level 136 136-145 mmol/L Potassium Level 4.7 3.5-5.1 mmol/L Chloride Level 104 98-107 mmol/L Carbon Dioxide Level 26 20-31 mmol/L Anion Gap 6 5-15 Blood Urea Nitrogen 21 9-23 mg/dL Creatinine 1.17 H 0.550-1.02 mg/dL Glomerular Filtration Rate Calc 48 >90 mL/min BUN/Creatinine Ratio 17.9 10.0-20.0 Serum Glucose 177 H 74-106 mg/dL Lactic Acid Level 2.3 *H 0.4-2.0 mmol/L Calcium Level 9.4 8.7-10.4 mg/dL Iron Level 26 L 50-170 ug/dL Total Iron Binding Capacity 392 250-425 ug/dL Percent Iron Saturation 6.6 L 15-50 % Total Bilirubin 0.3 0.2-1.0 mg/dL Aspartate Amino Transferase (AST) 34 13-40 U/L Alanine Aminotransferase (ALT) 33 7-40 U/L Alkaline Phosphatase 103 46-116 U/L Troponin I High Sensitivity 4 </=34 ng/L B-Type Natriuretic Peptide 146.90 0-100 pg/mL Total Protein 6.0 5.7-8.2 g/dL Albumin 3.7 3.2-4.8 g/dL Vitamin B12 Level Pending Urine Color Light-brown Yellow Urine Clarity Turbid H Clear Urine pH 5.5 5.0-9.0 Urine Specific [place] 1.018 1.001-1.035 Urine Protein 1+ H Negative Urine Ketones Negative Negative Urine Blood 3+ H Negative /uL Urine Nitrite Negative Negative Urine Bilirubin Negative Negative Urine Urobilinogen Normal Negative mg/dL Urine Leukocyte Esterase 2+ Negative /uL Urine RBC 1016 0 - 4 /hpf Urine WBC 101 0 - 5 /hpf Urine Squamous Epithelial Cells Few <5 /hpf Urine Bacteria None seen None Seen /hpf Urine Glucose 4+ H Normal mg/dL Current Medications Medications (Trade) Dose Ordered Sig/Jeannie Route Start Time Stop Time Status Last Admin Pantoprazole Sodium (Protonix) 40 mg ONCE ONCE IV 04/17/24 15:45 04/17/24 16:09 DC 04/17/24 17:03 Sodium Chloride 1,000 ml @ 1,000 mls/hr Q1H ONCE IV 04/17/24 19:15 04/17/24 20:14 DC 04/17/24 21:17 Time of 1ST Reevaluation: 19:11 Reevaluation 1ST: Unchanged Patient Education/Counseling: Diagnosis, Treatment Family Education/Counseling: Diagnosis, Treatment Comments MDM Patient presented with the above rectal bleed, dizziness. workup was initiated. Patient was given: IV fluids. Patient's lab revealed hemoglobin of 8.5, last labs in the record from February 222022 revealed hemoglobin of 11.4. Repeat H&H was ordered after IV fluids which revealed hemoglobin of 8.6 CT abdomen/pelvis without IV contrast revealed 1. No findings to suggest bowel obstruction. 2. Gallbladder has been surgically removed. 3. No nephrolithiasis or hydronephrosis. 4. 5.4 cm fat containing umbilical hernia. 5. No findings of diverticulitis. Patient has been observed in the ED adequate length of time to insure improvement/stability. patient was admitted to the medicine team for further evaluation and treatment of their presentation. All the reports of any imaging studies that were ordered by myself were reviewed by myself. Departure 1 Departure Time of Disposition: 19:11 Impression: Primary Impression: Rectal bleed Additional Impression: Acute anemia Disposition: ADMITTED INPATIENT Admit to: Tele Condition: Guarded KAVON MALDONADO RESIDENT Apr 17, 2024 16:35
[2024-04-17 16:43] LABS: Urine Bacteria None Seen /hpf (None Seen)
--- NOTE | 2024-04-17 16:51 | DVH ---
Exam: CT CT AB PEL WO CON-NO ORAL OR IV History: abd pain, rectal bleed Comparison Study: None available at time of dictation. TECHNIQUE: Multidetector CT of the abdomen was performed from lung bases to pubic symphysis. Imaging was performed without IV contrast. Axial, coronal and sagittal multiplanar reformats were obtained fr om the axial data set by the technologist. Radiation Dose Information: CT Dose: CTDI volume is 19.73 mGy. Dose-length product is 1007.41 mGy*cm FINDINGS: Evaluation of solid organs is limited due to lack of intravenous contrast use. Findings: Lung Bases: No acute or significant lung base finding. Normal heart size. No pleural or pericardial effusion. Liver: The liver is normal in size. No focal lesions. Gallbladder and Biliary Tree: Gallbladder has been surgically removed. Spleen: Unremarkable Pancreas: The pancreas is grossly normal in appearance. Adrenal Glands: Unremarkable Kidneys: Kidneys are grossly normal without calculi or hydronephrosis. Bladder: Grossly unremarkable for degree of distention. Bowel: The stomach is grossly normal in appearance. Small bowel and colon are normal in caliber and d istribution. The appendix is not visualized; however, no secondary findings of acute appendicitis id entified. Ascites: Absent Lymphadenopathy: No mesenteric, retroperitoneal or periportal lymphadenopathy. Abdominal Wall and Mesentery: 5.4 cm fat containing umbilical hernia. Vasculature: The visualized abdominal aorta is normal in size and caliber. Evaluation of abdominal a nd pelvic vessels is limited due to lack of intravenous contrast. Pelvic Organs: Unremarkable Musculoskeletal: No aggressive focal bony lesions, acute fractures or dislocation. Soft tissues: Unremarkable IMPRESSION: 1. No findings to suggest bowel obstruction. 2. Gallbladder has been surgically removed. 3. No nephrolithiasis or hydronephrosis. 4. 5.4 cm fat containing umbilical hernia. 5. No findings of diverticulitis. Radiation optimization: All CT scans at this facility use at least one of these dose optimization te chniques: automated exposure control mA and/or kV adjustment per patient size (includes targeted exa ms where dose is matched to clinical indication) or iterative reconstruction.
[2024-04-17 17:03] VITALS: PULSE 60; RESP 16; O2SAT 95
[2024-04-17] MEDS: PANTOPRAZOLE 40 MG/10 ML VIAL INJ IV ONE (17:03)
[2024-04-17 17:09] LABS: Urine Blood 3+ /uL (Negative); Urine Clarity Turbid (Clear); Urine Color Light-Brown (Yellow); Urine Protein, UAD 1+ (Negative); Urine Specific Gravity 1.018 (1.001-1.035); Urine Urobilinogen Normal (Negative); Urine WBC 101 /hpf (0 - 5); Urine pH 5.5 (5.0-9.0)
[2024-04-17 17:20] LABS: Basophils # (auto) 0.1 10 ^3/uL (0-0.2); Eosinophils # (auto) 0.2 10 ^3/uL (0-0.8); Hemoglobin 8.5 g/dL (12.2-16.2); Monocytes # (auto) 0.7 10 ^3/uL (0-1.3)
[2024-04-17 17:22] LABS: Basophils % (auto) 1.5 % (0.0-2.0); Hematocrit 27.6 % (36.0-46.0); Lymphocytes # (auto) 2.2 10 ^3/uL (0.4-5.4); Lymphocytes % (auto) 35.8 % (10.0-50.0); Mean Corpuscular Hemoglobin 21.3 pg (28.0-32.0); Mean Corpuscular Hgb Conc. 30.8 g/dL (32.0-36.0); Mean Corpuscular Volume 69.2 fL (80.0-100.0); Monocytes % (auto) 11.9 % (0.0-12.0); Neutrophils # (auto) 2.9 10 ^3/uL (1.6-8.6); Neutrophils % (auto) 47.8 % (37.0-80.0); Platelet Count (auto) 238 10^3/uL (140-450); Red Blood Cells 3.98 10^6/uL (4.0-5.20)
[2024-04-17 17:34] LABS: INR 1.08 (0.9-1.15); Partial Thromboplastin Time 27.9 SEC (24.5-34.5); Prothrombin Time 11.4 sec (9.3-11.8)
[2024-04-17 17:44] LABS: Alanine Aminotransferase 33 U/L (7-40); Albumin 3.7 g/dL (3.2-4.8); Alkaline Phosphatase 103 U/L (46-116); Anion Gap 6 (5-15); Aspartate Aminotransferase 34 U/L (13-40); BUN/Creatinine Ratio 17.9 (10.0-20.0); Blood Urea Nitrogen 21 mg/dL (9-23); Calcium 9.4 mg/dL (8.7-10.4); Carbon Dioxide 26 mmol/L (20-31); Chloride 104 mmol/L (98-107); Glucose 177 mg/dL (74-106); Potassium 4.7 mmol/L (3.5-5.1); Sodium 136 mmol/L (136-145)
[2024-04-17 17:45] LABS: Bilirubin, Total 0.3 mg/dL (0.2-1.0)
[2024-04-17 17:49] LABS: Lactic Acid w/Reflex 2.3 mmol/L (0.4-2.0)
[2024-04-17 17:51] LABS: Hypochromia Slight; Platelet Estimate Adequate
[2024-04-17] MEDS ORDERED: NITROGLYCERIN 0.4 MG SL TAB SL PRN (21:30)
[2024-04-17] MEDS ORDERED: DEXTROSE (50%) 50ML SYRG IV PRN (21:30)
[2024-04-17] MEDS ORDERED: MORPHINE SULFATE INJ 2 MG/ml SYRG IV PRN (21:30)
[2024-04-17 22:03] LABS: Hematocrit 28.4 % (36.0-46.0); Hemoglobin 8.6 g/dL (12.2-16.2)
[2024-04-17 22:58] LABS: % Iron Saturation 6.6 % (15-50)
[2024-04-17 23:43] VITALS: BP 127/49; PULSE 62; RESP 18; TEMP 97.6; O2SAT 98
[2024-04-18] VITALS (8 sets, daily range): BP systolic 117–151; BP diastolic 46–67; PULSE 59–71; RESP 16–20; TEMP 97.6–98; O2SAT 91–98
--- NOTE | 2024-04-18 00:50 | DVHHP2 ---
JOSE RAMON LÓPEZ SERVICE DESK TEAM LEAD 04/18/24 0050: History of Present Illness Reason for Visit: Rectal bleeding History of Present Illness 78-year-old female with past medical history of hypertension, DM, Hyp erlipidemia, CKD III, Anemia, Total left knee arthroplasty Presents with complaints Of bright red rectal bleeding That began on Wednesday. Patient recently underwent Colonoscopy with polypectomy x2, previous 04/13/24. Patient states she first noticed red blood mixed with stool on wednesday. Patient then noticed blood clots with bright red blood. Patient also endorsed she has had 5 episodes of bright red rectal bleeding on the day of arrival to the ED. Daughter Estimated about 250ml blood in each. Patient's daughter states the patient was placed on Eliquis prophylactically after having total left knee arthroplasty. Stopped taking eliquis prior to procedure and has not resumed it. Patient also endorses dizziness And lower abdominal pain At this time. Denies fevers, chills, Shortness of breath, chest pain, palpitations, Nausea, vomiting, hematemesis. Cardiovascular: HTN, hyperipidemia Heme/Onc: Anemia NOS Renal/: Chronic renal insuff Endocrine: Diabetes Review of Systems Constitutional: Yes: Weakness, Other (Dizziness); No: Fever, Chills, Sweats, Malaise Eyes: No: Pain, Vision change, Conjunctivae inflammation, Eyelid inflammation, Other, Redness ENT: No: Ear pain, Ear discharge, Nose pain, Nose discharge, Nose congestion, Mouth pain, Mouth swelling, Throat pain, Throat swelling, Other Respiratory: No: Cough, Dry, Shortness of breath, SOB with excertion, Wheezing, Hemoptysis, Pleuritic Pain, Sputum, Wheezing, Other Cardiovascular: No: Chest Pain, Palpitations, Orthopnea, Paroxysmal Noc. Dyspnea, Edema, Lt Headedness, Other Gastrointestinal: Hematochezia; No: Nausea, Vomiting, Diarrhea, Constipation, Melena, Other Genitourinary: No Dysuria, No Frequency, No Incontinence; Hematuria; No Retention, No Other Musculoskeletal: No: other, neck pain, shoulder pain, arm pain, back pain, hand pain, leg pain, foot pain Skin: No: Rash, Lesions, Jaundice, Bruising, Other Neurological: No: Weakness, Numbness, Incoordination, Change in speech, Confusion, Seizures, Other Allergies: Coded Allergies: Tramadol (Verified Allergy, Severe, 10/3/23) Penicillins (Verified Allergy, Mild, 03/02/23) Experienced hives over 10 years and previously on amoxicillin x 3 days with no reaction Medications Current Medications Medications Dose Ordered Sig/Jeannie Route Start Time Stop Time Status Last Admin Dose Admin Sodium Chloride 1,000 ml @ 60 mls/hr [id number] IV 04/17/24 21:30 04/18/24 14:09 Acetaminophen 650 mg Q6HP PRN PO 04/17/24 21:30 Acetaminophen/ Hydrocodone Bitart 1 tab Q4HP PRN PO 04/17/24 21:30 Ondansetron HCl 4 mg Q4HP PRN IV 04/17/24 21:30 Nitroglycerin 0.4 mg Q5MINP PRN SL 04/17/24 21:30 Morphine Sulfate 2 mg Q30M PRN IV 04/17/24 21:30 Diagnostic Test (Pha) 1 strip Q6HR 04/18/24 00:00 Insulin Human Regular Q6HR SC 04/18/24 00:00 Dextrose 50 ml UD PRN IV 04/17/24 21:30 Pantoprazole Sodium 40 mg DAILY IV 04/18/24 10:00 Levofloxacin 50 ml @ 50 mls/hr DAILY IV 04/18/24 10:00 UNV Exam Vital Signs Vital Signs Date Time Temp Pulse Resp B/P (MAP) Pulse Ox O2 Delivery O2 Flow Rate FiO2 04/17/24 21:32 98.0 76 17 141/52 (81) 96 98.0 04/17/24 17:03 Room Air* 0 21 General Appearance: Alert, Oriented X3, Cooperative, mild distress HEENT: Atraumatic, PERRLA, EOMI Respiratory: Clear to auscultation, Normal air movement Cardiovascular: Regular rate, Normal S1, Normal S2 Abdominal: Normal bowel sounds, Soft, No tenderness Extremities: No clubbing, No cyanosis, No edema Skin: No rashes, No breakdown Neuro: Normal speech Psych/Mental Status: Mental status NL, Mood NL Labs/Xrays Labs Test 04/17/24 21:52 04/17/24 21:30 04/17/24 21:28 04/17/24 16:50 Range/Units Hemoglobin 8.6 L 12.2-16.2 g/dL Hematocrit 28.4 L 36.0-46.0 % POC Glucose 100 70-106 mg/dl Lactic Acid Level 1.6 0.4-2.0 mmol/L White Blood Count 6.0 4.4-10.8 10^3/uL Red Blood Count 3.98 L 4.0-5.20 10^6/uL Mean Corpuscular Volume 69.2 L 80.0-100.0 fL Mean Corpuscular Hemoglobin 21.3 L 28.0-32.0 pg Mean Corpuscular Hemoglobin Concent 30.8 L 32.0-36.0 g/dL Red Cell Distribution Width 17.0 H 11.8-14.3 % Platelet Count 238 140-450 10^3/uL Mean Platelet Volume 8.3 6.9-10.8 fL Neutrophils (%) (Auto) 47.8 37.0-80.0 % Lymphocytes (%) (Auto) 35.8 10.0-50.0 % Monocytes (%) (Auto) 11.9 0.0-12.0 % Eosinophils (%) (Auto) 3.0 0.0-7.0 % Basophils (%) (Auto) 1.5 0.0-2.0 % Neutrophils # (Auto) 2.9 1.6-8.6 10 ^3/uL Lymphocytes # (Auto) 2.2 0.4-5.4 10 ^3/uL Monocytes # (Auto) 0.7 0-1.3 10 ^3/uL Eosinophils # (Auto) 0.2 0-0.8 10 ^3/uL Basophils # (Auto) 0.1 0-0.2 10 ^3/uL Nucleated Red Blood Cells 0.0 % Platelet Estimate Adequate Hypochromasia (manual) Slight Microcytosis Slight Prothrombin Time 11.4 9.3-11.8 sec Prothrombin Time INR 1.08 0.9-1.15 Activated Partial Thromboplast Time 27.9 24.5-34.5 SEC Sodium Level 136 136-145 mmol/L Potassium Level 4.7 3.5-5.1 mmol/L Chloride Level 104 98-107 mmol/L Carbon Dioxide Level 26 20-31 mmol/L Anion Gap 6 5-15 Blood Urea Nitrogen 21 9-23 mg/dL Creatinine 1.17 H 0.550-1.02 mg/dL Glomerular Filtration Rate Calc 48 >90 mL/min BUN/Creatinine Ratio 17.9 10.0-20.0 Serum Glucose 177 H 74-106 mg/dL Calcium Level 9.4 8.7-10.4 mg/dL Iron Level 26 L 50-170 ug/dL Total Iron Binding Capacity 392 250-425 ug/dL Percent Iron Saturation 6.6 L 15-50 % Total Bilirubin 0.3 0.2-1.0 mg/dL Aspartate Amino Transferase (AST) 34 13-40 U/L Alanine Aminotransferase (ALT) 33 7-40 U/L Alkaline Phosphatase 103 46-116 U/L Troponin I High Sensitivity 4 </=34 ng/L B-Type Natriuretic Peptide 146.90 0-100 pg/mL Total Protein 6.0 5.7-8.2 g/dL Albumin 3.7 3.2-4.8 g/dL Test 04/17/24 15:04 Range/Units Urine Color Light-brown Yellow Urine Clarity Turbid H Clear Urine pH 5.5 5.0-9.0 Urine Specific [place] 1.018 1.001-1.035 Urine Protein 1+ H Negative Urine Ketones Negative Negative Urine Blood 3+ H Negative /uL Urine Nitrite Negative Negative Urine Bilirubin Negative Negative Urine Urobilinogen Normal Negative mg/dL Urine Leukocyte Esterase 2+ Negative /uL Urine RBC 1016 0 - 4 /hpf Urine WBC 101 0 - 5 /hpf Urine Squamous Epithelial Cells Few <5 /hpf Urine Bacteria None seen None Seen /hpf Urine Glucose 4+ H Normal mg/dL Assessment/Plan Assessment/Plan Rectal bleed S/p colonoscopy with polypectomy x2 (04/13/24) Anemia UTI with hematuria Hypertension T2DM computer terminal operator Anticoagulation therapy (Eliquis) Plan Admit telemetry Consult gastroenterology. Monitor H&H. Transfuse PRBCs for Hgb < 7. Hold eliquis. IVF, IV ABX. Continue home medications. As needed antihypertensives for optimal BP management. Blood glucose checks ACHS with regular insulin moderate dosing sliding scale coverage for optimal glycemic management. PT evaluation. GI ppx protonix / DVT ppx scds Plan discussed with: Patient, Daughter My Orders Orders - JOSE RAMON LÓPEZ SERVICE DESK TEAM LEAD Procedure Category Date Status Time Admit ADMIT 04/17/24 Transmitted 21:20 Code Status CODE 04/17/24 Transmitted 21:20 Vital Signs RADHA 04/17/24 In Process 21:20 Review Orders With RADHA 04/17/24 In Process Adm. 21:20 Encourage Activity As RADHA 04/17/24 In Process Tolerate 21:20 Npo (Nothing By DIET 04/18/24 Transmitted Mouth) Diet Breakfast Sodium Chloride 0.9% PHA 04/17/24 In Process 21:30 Oxygen By Face Mask RT 04/17/24 Transmitted 21:20 Acetaminophen Tablet PHA 04/17/24 In Process (Tylenol Tablet) 21:30 Notify Of Changes [facility] 04/17/24 In Process From Base 21:20 Advance Directive RADHA 04/17/24 In Process 21:20 Basic Metabolic Panel LAB 04/18/24 Logged 05:00 Basic Metabolic Panel LAB 04/19/24 Verified 05:00 Basic Metabolic Panel LAB 04/20/24 Verified 05:00 Complete Blood Count LAB 04/18/24 Logged 05:00 Complete Blood Count LAB 04/19/24 Verified 05:00 Complete Blood Count LAB 04/20/24 Verified 05:00 Complete Blood Count LAB 04/21/24 Verified 05:00 Patient Condition ORDERS 04/17/24 Transmitted 21:20 Allergies RADHA 04/17/24 In Process 21:20 Hydrocodone-Acet PHA 04/17/24 In Process 5/325mg Tab ([place] 21:30 Ondansetron Hcl PHA 04/17/24 In Process (Zofran) 21:30 Sequential RADHA 04/17/24 In Process Compression Device Nitroglycerin [facility] 04/17/24 In Process Sublingual (Ntrostat 21:30 Morphine Sulfate PHA 04/17/24 In Process Injection 21:30 Stat Ekg For Chest [facility] 04/17/24 In Process Pain 21:20 Notify Of Changes [facility] 04/17/24 In Process From Base 21:20 Joist Setter For [facility] 04/17/24 In Process 24 Hours 21:20 Emergency Dysrhythmia [facility] 04/17/24 In Process Protocol 21:20 Rhythm Strips Once [facility] 04/17/24 In Process Every Shift 21:20 Oxygen By Nasal RT 04/17/24 Transmitted Cannula 21:20 Glucose Blood PHA 04/18/24 In Process (Accu-Chek Comfort 00:00 Insulin R (Human) PHA 04/18/24 In Process (Insulin R) 00:00 Dextrose 50% Syringe PHA 04/17/24 In Process 21:30 Hemoglobin & LAB 04/18/24 Logged Hematocrit 12:00 Hemoglobin & LAB 04/18/24 Logged Hematocrit 18:00 Hemoglobin & LAB 04/19/24 Verified Hematocrit 00:00 *[facility] CONS 04/17/24 Transmitted 21:20 Pantoprazole PHA 04/18/24 In Process (Protonix) 10:00 Vitamin B12 LAB 04/17/24 In Process 21:20 Levofloxacin 250mg PHA 04/18/24 Logged (Levaquin 250mg) 10:00 Date of Service: Apr 18, 2024 Billing Provider: SILVESTRE DIAS MD Common Visit Codes: NOT BILLABLE SILVESTRE DIAS MD 04/18/24 1722: Review of Systems Allergies: Coded Allergies: Tramadol (Verified Allergy, Severe, 02/23/23) Penicillins (Verified Allergy, Mild, 03/02/23) Experienced hives over 10 years and previously on amoxicillin x 3 days with no reaction Additional Comments Additional Comments Additional Comments 48-year-old female with a known history of hypertension, diabetes mellitus type 2, previous history of knee arthroplasty was on Eliquis which was stopped right before colonoscopy, patient had colonoscopy last week since then she was having rectal bleed. 1. Acute anemia with lower GI bleed, currently hemoglobin stable 2. Hypotension 3. Diabetes mellitus type 2 next number for UTI 5. Long-term anticoagulation was on Eliquis per unclear indication -keep on holding on any anticoagulation, monitor H and H, GI consultation -clear liquid diet advanced to full liquid diet. -home health home safety evaluation upon discharge. JOSE RAMON LÓPEZ NP Apr 18, 2024 00:50 SILVESTRE DIAS MD Apr 18, 2024 17:22
[2024-04-18] MEDS: InsuLIN REG 1unit/0.01ml Soln (100units/ml) SC SCH (01:05)
[2024-04-18] MEDS: ACCU-CHEK COMFORT CURVE STRIP VI SCH (01:06)
[2024-04-18] MEDS ORDERED: ACET-1881 PO (01:10)
[2024-04-18] MEDS ORDERED: FURO1TAB33 GT (01:10)
[2024-04-18] MEDS ORDERED: PANT1INJ3 PO (01:10)
[2024-04-18] MEDS ORDERED: ONDA-155 PO (01:10)
[2024-04-18] MEDS ORDERED: ALBU2TAB11 PO (01:18)
[2024-04-18] MEDS ORDERED: CYCL-839 PO (01:18)
[2024-04-18] MEDS ORDERED: CETI10TA2 PO (01:18)
[2024-04-18] MEDS ORDERED: PREG50CA PO (01:18)
[2024-04-18] MEDS ORDERED: ALEN70TA74 PO (01:18)
[2024-04-18] MEDS ORDERED: EMPA1TAB PO (01:18)
[2024-04-18] MEDS ORDERED: DOCU-94 PO (01:18)
[2024-04-18] MEDS ORDERED: DONE5TAB80 PO (01:18)
[2024-04-18] MEDS ORDERED: MAGN400T40 PO (01:20)
[2024-04-18 06:14] LABS: Basophils # (auto) 0.1 10 ^3/uL (0-0.2); Eosinophils # (auto) 0.2 10 ^3/uL (0-0.8); Mean Corpuscular Volume 69.7 fL (80.0-100.0); Neutrophils # (auto) 2.7 10 ^3/uL (1.6-8.6); Nucleated Red Blood Cells % 0.1 %; White Blood Cell 6.1 10^3/uL (4.4-10.8)
[2024-04-18 06:18] LABS: Eosinophils % (auto) 2.8 % (0.0-7.0); Hematocrit 27.5 % (36.0-46.0); Hemoglobin 8.6 g/dL (12.2-16.2); Lymphocytes # (auto) 2.4 10 ^3/uL (0.4-5.4); Lymphocytes % (auto) 40.1 % (10.0-50.0); Mean Corpuscular Hemoglobin 21.7 pg (28.0-32.0); Mean Corpuscular Hgb Conc. 31.2 g/dL (32.0-36.0); Monocytes # (auto) 0.7 10 ^3/uL (0-1.3); Monocytes % (auto) 11.8 % (0.0-12.0); Neutrophils % (auto) 44.3 % (37.0-80.0); Platelet Count (auto) 223 10^3/uL (140-450); Red Blood Cells 3.95 10^6/uL (4.0-5.20); Red Cell Distribution Width 16.7 % (11.8-14.3)
[2024-04-18 06:22] LABS: Anion Gap 8 (5-15); Carbon Dioxide 27 mmol/L (20-31); Chloride 107 mmol/L (98-107); Potassium 4.5 mmol/L (3.5-5.1); Sodium 142 mmol/L (136-145)
[2024-04-18 06:24] LABS: Calcium 9.2 mg/dL (8.7-10.4)
[2024-04-18 06:28] LABS: BUN/Creatinine Ratio 15.7 (10.0-20.0); Blood Urea Nitrogen 17 mg/dL (9-23); Glucose 114 mg/dL (74-106)
[2024-04-18] MEDS: PANTOPRAZOLE 40 MG/10 ML VIAL INJ IV SCH (09:23)
[2024-04-18] MEDS: levoFLOXacin 250MG 50 ML IV SCH (09:23)
[2024-04-18] MEDS: HYDROcodone-ACET 5/325MG TAB PO PRN (09:31)
--- NOTE | 2024-04-18 11:24 | ECG ---
[facility] Test Date: 2024-04-17 Test Time: 15:15:06 Pat Name: CELI VILLANUEVA Department: ER Room: Replaced by [facility] B Gender: F It Lead: LUCA : 1945 Requested By: DYLLAN GALLEGOS Order Number: [id number] Reading MD: Daniel Madrigal Measurements Intervals [place] Rate: 55 P: 21 IA: 205 QRS: -7 QRSD: 91 T: 57 QT: 433 QTc: 415 Interpretive Statements Sinus rhythm Low voltage, precordial leads Baseline wander in lead(s) I,III,aVL,V3,V6 Electronically Signed On 04-19-2024 14:13:18 PST by Daniel Madrigal Please click the below link to view image of tracing.
[2024-04-18 12:46] LABS: Hematocrit 25.8 % (36.0-46.0)
[2024-04-18] MEDS: ACETAMINOPHEN 325 MG TAB PO PRN (14:08)
[2024-04-18 19:22] LABS: Hematocrit 28.8 % (36.0-46.0); Hemoglobin 8.9 g/dL (12.2-16.2)
--- NOTE | 2024-04-18 21:15 | DVHINCON2 ---
DATE OF CONSULTATION: 04/18/2024 REFERRING PROVIDER: Dr. Adrian Iqbal REASON FOR CONSULTATION: Rectal bleeding. HISTORY OF PRESENT ILLNESS: This is a 78-year-old female who is on Eliquis for possible deep venous thrombosis. The patient underwent a colonoscopy on 04/13/2024 and 2 polyps were removed. The patient did well and on 04/15, the patient started having rectal bleeding with a bowel movement, initially had clots. The patient came in for further treatment. The patient's hemoglobin was noted to be 8.5 on admission. The patient's baseline fluctuates between 8 and 12. The patient had to be on iron for a period of time. It is unclear if the patient has chronic gastrointestinal bleeding due to Eliquis. The patient has not had an episode of rectal bleeding since last night. Gastroenterology consultation was requested for evaluation. PAST MEDICAL HISTORY: Hypertension, dyslipidemia, diabetes, chronic renal insufficiency, chronic intermittent anemia. PAST SURGICAL HISTORY: Left knee replacement. MEDICATIONS: Per reconciliation form. ALLERGIES: PENICILLIN AND TRAMADOL. SOCIAL HISTORY: Unremarkable. PHYSICAL EXAMINATION: VITAL SIGNS: Temperature 97.6, pulse is 63, blood pressure 128/47. GENERAL: Obese female, not in acute distress. SKIN: She is pale. HEART: Regular rate and rhythm. No murmurs. LUNGS: Clear to auscultation bilaterally. ABDOMEN: Soft, nontender, nondistended. DIAGNOSTIC STUDIES: Hemoglobin is 8. CT scan of the abdomen and pelvis is unremarkable. ASSESSMENT: * Rectal bleeding, possibly secondary to post-polypectomy in the setting of chronic anticoagulation use, however, she has not restarted on Eliquis. * Anemia. * Anticoagulation use. The indication is unclear. This patient may not benefit from Eliquis. RECOMMENDATIONS: * Continue to hold Eliquis until the patient has visit with primary care provider and decide whether Eliquis is indicated in this patient. * The patient has no recurrent bleeding, then the patient may be discharged. * Advance diet. The patient was started on clear liquid diet at this time. Thank you very much for allowing me to participate in the care of this patient. MD SHELBY Bentley/MARTINA TID: [id number] RECEIPT: [id number]
[2024-04-19 01:00] VITALS: BP 136/45; PULSE 63; RESP 18; TEMP 98; O2SAT 95
[2024-04-19 01:47] LABS: Hematocrit 27.6 % (36.0-46.0); Hemoglobin 8.5 g/dL (12.2-16.2)
[2024-04-19 05:00] VITALS: BP 119/91; PULSE 80; RESP 20; TEMP 97.6; O2SAT 92
[2024-04-19 05:58] LABS: Anion Gap 6 (5-15); Carbon Dioxide 26 mmol/L (20-31); Chloride 108 mmol/L (98-107); Potassium 4.2 mmol/L (3.5-5.1); Sodium 140 mmol/L (136-145)
[2024-04-19 05:59] LABS: Calcium 9.2 mg/dL (8.7-10.4)
[2024-04-19 06:04] LABS: BUN/Creatinine Ratio 12.7 (10.0-20.0); Blood Urea Nitrogen 13 mg/dL (9-23); Glucose 127 mg/dL (74-106)
[2024-04-19 06:17] LABS: Basophils # (auto) 0.1 10 ^3/uL (0-0.2); Eosinophils # (auto) 0.2 10 ^3/uL (0-0.8); Hemoglobin 8.5 g/dL (12.2-16.2); Mean Corpuscular Volume 69.6 fL (80.0-100.0)
[2024-04-19 06:20] LABS: Basophils % (auto) 1.2 % (0.0-2.0); Eosinophils % (auto) 3.8 % (0.0-7.0); Hematocrit 26.9 % (36.0-46.0); Lymphocytes % (auto) 39.9 % (10.0-50.0); Mean Corpuscular Hgb Conc. 31.6 g/dL (32.0-36.0); Monocytes # (auto) 0.5 10 ^3/uL (0-1.3); Monocytes % (auto) 10.6 % (0.0-12.0); Neutrophils # (auto) 2.2 10 ^3/uL (1.6-8.6); Neutrophils % (auto) 44.5 % (37.0-80.0); Nucleated Red Blood Cells % 0.1 %; Platelet Count (auto) 207 10^3/uL (140-450); Red Blood Cells 3.86 10^6/uL (4.0-5.20); Red Cell Distribution Width 16.9 % (11.8-14.3)
[2024-04-19 08:00] VITALS: PULSE 60
[2024-04-19 09:00] VITALS: BP 178/57; PULSE 78; RESP 18; TEMP 98.1; O2SAT 96
[2024-04-19] MEDS ORDERED: AMLO1TAB22 PO (11:22)
[2024-04-19] MEDS ORDERED: VALS1TAB58 PO (11:22)
[2024-04-19] MEDS ORDERED: MET25T PO (11:22)
[2024-04-19 13:00] VITALS: BP 153/51; PULSE 71; RESP 18; TEMP 97.6; O2SAT 94
[2024-04-19] MEDS: amLODIPine BESYLATE 5 MG TAB PO SCH (14:32)
[2024-04-19] MEDS: ONDANSETRON HCL 4 MG/2 ML VIAL IV PRN (14:32)
[2024-04-19] MEDS: FUROSEMIDE 20 MG TAB PO SCH (14:33)
[2024-04-19] MEDS: VALSARTAN 80 MG TAB PO SCH (14:34)
[2024-04-19] MEDS: METOPROLOL TARTRATE 25 MG TAB PO SCH (14:34)
--- NOTE | 2024-04-19 14:47 | DVHDS2 ---
Discharge Summary Date of Admission Apr 17, 2024 at 21:20 Date of Discharge: Apr 19, 2024 Labs/Diagnostic Data: Laboratory Results Test 04/19/24 11:39 04/19/24 04:50 04/17/24 21:28 04/17/24 16:50 POC Glucose 134 mg/dl (70-106) White Blood Count 5.0 10^3/uL (4.4-10.8) Red Blood Count 3.86 10^6/uL (4.0-5.20) Hemoglobin 8.5 g/dL (12.2-16.2) Hematocrit 26.9 % (36.0-46.0) Mean Corpuscular Volume 69.6 fL (80.0-100.0) Mean Corpuscular Hemoglobin 22.0 pg (28.0-32.0) Mean Corpuscular Hemoglobin Concent 31.6 g/dL (32.0-36.0) Red Cell Distribution Width 16.9 % (11.8-14.3) Platelet Count 207 10^3/uL (140-450) Mean Platelet Volume 8.5 fL (6.9-10.8) Neutrophils (%) (Auto) 44.5 % (37.0-80.0) Lymphocytes (%) (Auto) 39.9 % (10.0-50.0) Monocytes (%) (Auto) 10.6 % (0.0-12.0) Eosinophils (%) (Auto) 3.8 % (0.0-7.0) Basophils (%) (Auto) 1.2 % (0.0-2.0) Neutrophils # (Auto) 2.2 10 ^3/uL (1.6-8.6) Lymphocytes # (Auto) 2.0 10 ^3/uL (0.4-5.4) Monocytes # (Auto) 0.5 10 ^3/uL (0-1.3) Eosinophils # (Auto) 0.2 10 ^3/uL (0-0.8) Basophils # (Auto) 0.1 10 ^3/uL (0-0.2) Nucleated Red Blood Cells 0.1 % Sodium Level 140 mmol/L (136-145) Potassium Level 4.2 mmol/L (3.5-5.1) Chloride Level 108 mmol/L (98-107) Carbon Dioxide Level 26 mmol/L (20-31) Anion Gap 6 (5-15) Blood Urea Nitrogen 13 mg/dL (9-23) Creatinine 1.02 mg/dL (0.550-1.02) Glomerular Filtration Rate Calc 56 mL/min (>90) BUN/Creatinine Ratio 12.7 (10.0-20.0) Serum Glucose 127 mg/dL (74-106) Calcium Level 9.2 mg/dL (8.7-10.4) Lactic Acid Level 1.6 mmol/L (0.4-2.0) Platelet Estimate Adequate Hypochromasia (manual) Slight Microcytosis Slight Prothrombin Time 11.4 sec (9.3-11.8) Prothrombin Time INR 1.08 (0.9-1.15) Activated Partial Thromboplast Time 27.9 SEC (24.5-34.5) Iron Level 26 ug/dL (50-170) Total Iron Binding Capacity 392 ug/dL (250-425) Percent Iron Saturation 6.6 % (15-50) Total Bilirubin 0.3 mg/dL (0.2-1.0) Aspartate Amino Transferase (AST) 34 U/L (13-40) Alanine Aminotransferase (ALT) 33 U/L (7-40) Alkaline Phosphatase 103 U/L (46-116) Troponin I High Sensitivity 4 ng/L (</=34) B-Type Natriuretic Peptide 146.90 pg/mL (0-100) Total Protein 6.0 g/dL (5.7-8.2) Albumin 3.7 g/dL (3.2-4.8) Vitamin B12 Level 430 pg/mL (211-911) Test 04/17/24 15:04 Urine Color Light-brown (Yellow) Urine Clarity Turbid (Clear) Urine pH 5.5 (5.0-9.0) Urine Specific [place] 1.018 (1.001-1.035) Urine Protein 1+ (Negative) Urine Ketones Negative (Negative) Urine Blood 3+ /uL (Negative) Urine Nitrite Negative (Negative) Urine Bilirubin Negative (Negative) Urine Urobilinogen Normal mg/dL (Negative) Urine Leukocyte Esterase 2+ /uL (Negative) Urine RBC 1016 /hpf (0 - 4) Urine WBC 101 /hpf (0 - 5) Urine Squamous Epithelial Cells Few /hpf (<5) Urine Bacteria None seen /hpf (None Seen) Urine Glucose 4+ mg/dL (Normal) Other Laboratory Tests 04/19/24 04:50 Brief Hx & Hospital Course: 48-year-old female with a known history of hypertension, diabetes mellitus type 2, previous history of knee arthroplasty was on Eliquis which was stopped right before colonoscopy, patient had colonoscopy last week since then she was having rectal bleed. Has been daughter patient had multiple episodes of bright red blood and sometimes with clots. Eventually patient was was admitted GI was consulted. Patient's hemoglobin is currently stable and she has no more bleeding. Patient Eliquis we will be stopped and follow up with the primary physician what was the indication for Eliquis as patient was daughter states it was given after the surgery to prevent clots three years ago when she had a left knee surgery. Patient was had a symptomatic UTI received two doses of level, we will give low-dose of Levaquin three more days orally. Patient was being discharged under stable condition. Condition at Discharge: Stable Final Diagnosis/Problems List 48-year-old female with a known history of hypertension, diabetes mellitus type 2, previous history of knee arthroplasty was on Eliquis which was stopped right before colonoscopy, patient had colonoscopy last week since then she was having rectal bleed. 1. Acute anemia with lower GI bleed, currently hemoglobin stable 2. Hypertension 3. Diabetes mellitus type 2 4.r UTI 5. Long-term anticoagulation was on Eliquis per unclear indication Discharge Disposition: Home with Health Services SNF Discharge Will this Physician continue t: No Discharge Instruct/Medications Diet: Cardiac 2g Na,low cholest Diet comment: Two thousand ADA diet Activity: No Restrictions, As Tolerated Follow Up/Referral: Follow up with the PCP in 1-2 weeks Follow up with the GI gastro group as needed Medications: Resume home medication of besides Eliquis Discharge Statement: "Patient was advised to return to the ER or call 911 if any headaches, dizziness, shortness of breath, chest pain, abdominal pain, bleeding, fevers, or worsening of medical condition. Patient was counseled about treatment plan, medications, possible side effects, patientverbalized understanding. All questions were answered to the best of my ability. This discharge took greater then 30 minutes in planning, reviewing documentation, counseling the patient, and discussing with other team members." ASSESSMENT ASSESSMENT Assessment 48-year-old female with a known history of hypertension, diabetes mellitus type 2, previous history of knee arthroplasty was on Eliquis which was stopped right before colonoscopy, patient had colonoscopy last week since then she was having rectal bleed. 1. Acute anemia with lower GI bleed, currently hemoglobin stable 2. Hypertension 3. Diabetes mellitus type 2 4.r UTI 5. Long-term anticoagulation was on Eliquis per unclear indication Date of Service: Apr 19, 2024 Billing Provider: SILVESTRE DIAS MD Common Visit Codes: NOT BILLABLE SILVESTRE DIAS MD Apr 19, 2024 14:47
[2024-04-19] MEDS ORDERED: LEVO250T58 PO (14:49)
[2024-04-19 17:00] VITALS: BP 140/35; PULSE 61; RESP 20; TEMP 98.1; O2SAT 99
== END 2024-04-19 18:30 | disposition home health service (06) | DRG 378 ==
LOC: ER 14:50 → TELE 21:20 → TELE-WESTW 21:43
PROVIDERS: ADMIT Nurse Practitioner Family; ATTEND Internal Medicine
DX: K62.5 Hemorrhage of anus and rectum (principal); D62 Acute posthemorrhagic anemia; N39.0 Urinary tract infection, site not specified; E11.22 Type 2 diabetes mellitus with diabetic chronic kidney disease; R31.9 Hematuria, unspecified; I12.9 Hypertensive chronic kidney disease with stage 1 through stage 4 chronic kidney disease, or unspecified chronic kidney disease; N18.30 Chronic kidney disease, stage 3 unspecified; E78.5 Hyperlipidemia, unspecified; E03.9 Hypothyroidism, unspecified; Z90.49 Acquired absence of other specified parts of digestive tract; Z88.0 Allergy status to penicillin; Z88.8 Allergy status to other drugs, medicaments and biological substances; Z79.01 Long term (current) use of anticoagulants
CPT/HCPCS: 36415; 74176; 80048; 80053; 81001; 82607; 82962; 83540; 83550; 83605; 83880; 84484; 85014; 85018; 85025; 85610; 85730; 93005; 97162; G0378; J1815; J2405; J2470

== ENCOUNTER 2024-04-28 09:01 | Emergency (ER) | payer OTHER, MEDICAID ==
[~2024-04-28] VITALS: Ht 139.7 cm; Wt 81.0 kg
[~2024-04-28 09:01] MED LIST changes: +ACET-1881 PO; +ALBU2TAB11 PO; +ALEN70TA74 PO; +AMLO1TAB22 PO; -APIX5TAB PO; +CETI10TA2 PO; +CYCL-839 PO; +DOCU-94 PO; +DONE5TAB80 PO; +EMPA1TAB PO; +FURO1TAB33 GT; -GABA-1250 PO; +LEVO250T58 PO; +MAGN400T40 PO; +MET25T PO; +ONDA-155 PO; +PANT1INJ3 PO; +PREG50CA PO; +VALS1TAB58 PO
--- NOTE | 2024-04-28 10:10 | DVH ---
Left lower extremity venous duplex Clinical History: LEFT THIGH PAIN Comparison: US BILAT LOWER DVT on DOS: 02/23/23 Findings: Duplex Doppler evaluation of the deep venous system of the left lower extremity from the common femor al vein to the popliteal vein including color Doppler and spectral/pulsed waveform analysis was perfo rmed. The common femoral vein demonstrates appropriate compressibility and waveform variability. There is compressibility/patency of the great saphenous vein at the proximal thigh. The femoral vein demonstrates appropriate compressibility and waveform variability. The deep femoral vein demonstrates appropriate compressibility and waveform variability. The popliteal vein demonstrates appropriate compressibility and waveform variability. There is normal compressibility at the tibioperoneal trunk. Impression: No left femoropopliteal venous thrombosis. If clinical concern/symptoms persist or worsen, short-interval follow-up study is suggested.
[2024-04-28 10:54] VITALS: BP 127/43; PULSE 65; RESP 18; TEMP 98; O2SAT 95
[2024-04-28] MEDS ORDERED: ACET-1080 PO (11:03)
--- NOTE | 2024-04-28 11:08 | ED.PDOC ---
Musculoskeletal HPI Comments A 78 YEAR OLD FEMALE PRESENTS TO THE ED WITH COMPLAINT OF LEFT KNEE PAIN S/P SURGERY. PATIENT STATES SHE HAD A LEFT KNEE REPLACEMENT SURGERY DONE LAST YEAR AND HAS BEEN EXPERIENCING PAIN TO HER LEFT KNEE AND LOWER LEG A RESULT SINCE HER THEN. PATIENT REPORTS HER PCP SENT HER TO THE ED TODAY TO RULE OUT A DVT IN HER LEFT LOWER EXTREMITY. PATIENT DENIES FEVER, CHILLS, SHORTNESS OF BREATH, CHEST PAIN, ABDOMINAL PAIN, NAUSEA, VOMITING, HEADACHE, OR OTHER COMPLAINTS. NO OTHER SYMPTOMS OR MODIFYING FACTORS AT THIS TIME. PATIENT IS ALERT, ORIENTED X 4, AND HAS STEADY GAIT. Chief Complaint: Lower Extremity Time Seen by MD: 09:17 Primary Care Provider: JUANJO Reviewed Notes: Nurses Notes, Medications, Allergies Allergies: Coded Allergies: Tramadol (Verified Allergy, Severe, 02/23/23) Penicillins (Verified Allergy, Mild, 03/02/23) Experienced hives over 10 years and previously on amoxicillin x 3 days with no reaction Home Meds Active Scripts Acetaminophen (Tylenol 8 Hour Arthritis) 650 Mg Tab, 650 MG PO TID, #30 TAB Prov:RAMIRO MEDINA 04/28/24 Levofloxacin Hemihydrate (LEVOFLOXACIN) 250 Mg Tab, 250 MG PO DAILY for 3 Days, #3 TAB Prov:SILVESTRE DIAS MD 04/19/24 Lactobacillus (PROBIOTIC) Cap, 1 CAP OR DAILY, #30 CAP Prov:PANDA CHANEY MD 03/02/23 Cholestyramine (QUESTRAN POWDER) 4 Gm Pw, 4 GM PO Q8HPRN PRN, #30 POW give as needed for more than 3 large loose stools in a day Prov:PANDA CHANEY MD 03/02/23 Valsartan (Valsartan) 40 Mg Tab, 40 MG PO DAILY, #30 TAB Prov:PANDA CHANEY MD 03/02/23 Amlodipine Besylate (Amlodipine Besylate) 10 Mg Tab, 1 TAB PO DAILY, #90 TAB 1 Refill Prov:PANDA CHANEY MD 03/02/23 Reported Medications Amlodipine Besylate (Amlodipine Besylate) 5 Mg Tab, 1 TAB PO DAILY 04/19/24 Metoprolol Tartrate (Lopressor) 25 Mg Tb, 1 TAB PO BID 04/19/24 Valsartan (Valsartan) 160 Mg Tab, 1 TAB PO DAILY 04/19/24 Magnesium Oxide (MAGNESIUM OXIDE) 400 Mg Tab, 1 TAB PO BID, #60 TAB 5 Refills 04/18/24 Albuterol Sulfate (Albuterol Sulfate) 2 Mg Tab, 2 MG PO Q6HP PRN for SHORTNESS OF BREATH, MG 04/18/24 Cetirizine Hcl (Kls Aller-Hood) 10 Mg Tab, 1 TAB PO DAILY, #30 TAB 3 Refills 04/18/24 Alendronate Sodium (Alendronate Sodium) 70 Mg Tab, 1 TAB PO QWEEKLY, #4 TAB 3 Refills 04/18/24 Empagliflozin (Jardiance) 10 Mg Tab, 10 MG PO, TAB 04/18/24 Donepezil Hydrochloride (DONEPEZIL HCL) 5 Mg Tab, 5 MG PO DAILY for 30 Days, MG 04/18/24 Cyclobenzaprine Hcl (Cyclobenzaprine Hcl) 10 Mg Tab, 10 MG PO Q8HP PRN for ANXIETY for 30 Days, MG 04/18/24 Docusate Sodium (Colace) 100 Mg Cap, 1 CAP PO BID, #60 CAP 2 Refills 04/18/24 Pregabalin (Lyrica) 50 Mg Cap, 1 CAP PO TID, #90 CAP 04/18/24 Acetaminophen (Acetaminophen) 325 Mg Tab, 500 MG PO Q4HP PRN for MILD PAIN for 30 Days, MG 0 Refills 04/18/24 Ondansetron HCl (Ondansetron) 4 Mg Tab, 4 MG PO, TAB 04/18/24 Pantoprazole Sodium (PANTOPRAZOLE SODIUM) 40 Mg Inj, 40 MG PO, INJ 04/18/24 Furosemide (Lasix) 20 Mg Tb, 20 MG GT, TAB 04/18/24 Clonazepam (KlonoPIN TABLET) 0.5 Mg Tb, 1 TAB PO DAILY, #30 TAB 02/26/23 [place]-3 Fatty Acids (FISH OIL) 1,000 Mg Cap, 1000 MG PO DAILY, CAP 02/26/23 Cholecalciferol (VITAMIN D3) 2,000 Unit Tab, 44222 UNIT PO DAILY, TAB 02/26/23 Glipizide (Glipizide) 5 Mg Tab, 1 TAB PO BID, #60 TAB 3 Refills 02/26/23 Atorvastatin Calcium (ATORVASTATIN CALCIUM) 20 Mg Tab, 1 TAB PO DAILY, #30 TAB 5 Refills 02/26/23 Ferrous Sulfate (FERROUS SULFATE) 325 Mg Tb, 325 MG PO DAILY, TAB 02/26/23 Metformin Hydrochloride (Metformin Hcl) 1,000 Mg Tab, 1 TAB PO BID, #60 TAB 5 Refills 02/26/23 Levothyroxine Sodium (Levothyroxine Sodium) 25 Mcg Tab, 1 TAB PO DAILY, #30 TAB 5 Refills 02/26/23 Metoprolol Tartrate (Metoprolol Tartrate) 25 Mg Tab, 50 MG PO BID for 30 Days, MG 02/25/23 Information Source: Patient Mode of Arrival: Wheelchair Location: Left Extremity Location: Knee Timing: Weeks Prehospital treatment: None Severity: Moderate Able to Move Extremity: Yes Bear Weight: Limited Pain: Moderate Mechanism: Spontaneous Circumstances: Spontaneous Onset of Symptoms: Spontaneous Symptoms: Pain DVT Risk Factors: Recent surgery Last Tetanus: Unknown Associated signs and symptoms: Knee pain Past Medical History PAST MEDICAL HISTORY: DM, High Lipids, HTN, Thyroid Surgical History: Cholecystectomy, Hernia Repair Surgical History (Other): LEFT KNEE REPLACEMENT CERTIFIED REGISTERED DENTAL ASSISTANT History: No Pertinent CERTIFIED REGISTERED DENTAL ASSISTANT History Family History Family History: Reviewed,noncontributory to illness Social History Smoker: Non-Smoker Alcohol: Denies ETOH Use Drugs: Denies Drug Use Lives In: Senior Living Constitutional: denies: chills, diaphoresis, fatigue, fever, malaise, sweats, weakness, others EENTM: denies: blurred vision, double vision, ear bleeding, ear discharge, ear drainage, ear pain, ear ringing, eye pain, eye redness, hearing loss, mouth pain, mouth swelling, nasal discharge, nose bleeding, nose congestion, nose pain, photophobia, tearing, throat pain, throat swelling, voice changes, others Respiratory: denies: cough, hemoptysis, orthopnea, SOB at rest, shortness of breath, SOB with excertion, stridor, wheezing, others Cardiovascular: denies: chest pain, dizzy spells, diaphoresis, Dyspnea on exertion, edema, irregular heart beat, left arm pain, lightheadedness, palpitations, PND, syncope, others Gastrointestinal: denies: abdomen distended, abdominal pain, blood streaked bowels, constipated, diarrhea, dysphagia, difficulty swallowing, hematemesis, melena, nausea, poor appetite, poor fluid intake, rectal bleeding, rectal pain, vomiting, others Genitourinary: denies: abnormal vagina bleeding, burning, dyspareunia, dysuria, flank pain, frequency, hematuria, incontinence, pain, , vagina discharge, urgency, others Neurological: denies: dizziness, fainting, headache, left sided numbness, left sided weakness, numbness, paresthesia, pre-existing deficit, right sided numbness, right sided weakness, seizure, speech problems, tingling, tremors, weakness, others Musculoskeletal: reports: joint pain, others (LEFT KNEE PAIN); denies: back pain, gout, joint swelling, muscle pain, muscle stiffness, neck pain Integumetry: denies: bruises, change in color, change in hair/nails, dryness, laceration, lesions, lumps, rash, wounds, others Allergic/Immunocompromised: denies: Difficulty Healing, Frequent Infections, Hives, Itching, others Hematologic/Lymphatic: denies: anemia, blood clots, easy bleeding, easy bruising, swollen glands, others Endocrine: denies: excessive hunger, excessive sweating, excessive thirst, excessive urination, flushing, intolerance to cold, intolerance to heat, unexplained weight gain, unexplained weight loss, others Psychiatric: denies: anxiety, bipolar disorder, depression, hopeless, panic disorder, schizophrenia, sleepless, suicidal, others All Other Systems: Reviewed and Negative Physical Exam General Appearance: No Apparent Distress, Normal HEENT: Normal ENT Inspection, PERRL/EOMI, Pharynx Normal, TMs Normal Neck: Full Range of Motion, Non-Tender, Normal, Normal Inspection Respiratory: Chest Non-Tender, Lungs Clear, No Accessory Muscle Use, No Respiratory Distress, Normal Breath Sounds Cardiovascular: No Edema, No JVD, No Murmur, No Gallop, Normal Peripheral Pulses, Regular Rate/Rhythm Breast Exam: Deferred Gastrointestinal: No Organomegaly, Non Tender, No Pulsatile Mass, Normal Bowel Sounds, Soft Genitalia: Deferred Pelvic: Deferred Rectal: Deferred Extremities: No calf tenderness, Normal capillary refill, Normal inspection, Normal range of motion, No pedal edema, Tender (LEFT KNEE TO LEFT POSTERIOR THIGH, NO REDNESS, SWELLING AND DVT SIGNS. ) Musculoskeletal : Apperance: Normal Neurologic: Alert, pricing associate II-XII nml as Tested, No Motor Deficits, Normal Affect, Normal Mood, No Sensory Deficits Cerebellar Function: Normal Reflexes: Normal Skin: Dry, Normal Color, Warm Peripheral Pulses: 2+ carotid (R), 2+ carotid (L) Lymphatic: No Adenopathy Was a procedure done? Was a procedure done?: No Differential Diagnosis EXT Differential Diagnosis: Deep Vein Thrombosis, DJD, Strain, Arthritis Other Differential Diagnosis POSTOPERATIVE PAIN X-Ray, Labs, Meds, VS Vital Signs Date Time Temp Pulse Resp B/P (MAP) Pulse Ox O2 Delivery O2 Flow Rate FiO2 04/28/24 10:54 65 18 95 Room Air 04/28/24 10:54 98.0 65 18 127/43 (71) 95 98.0 04/28/24 09:14 98.0 65 18 127/43 (71) 95 Left lower extremity venous duplex Clinical History: LEFT THIGH PAIN Comparison: US BILAT LOWER DVT on DOS: 02/23/23 Findings: Duplex Doppler evaluation of the deep venous system of the left lower extremity from the common femoral vein to the popliteal vein including color Doppler and spectral/pulsed waveform analysis was performed. The common femoral vein demonstrates appropriate compressibility and waveform variability. There is compressibility/patency of the great saphenous vein at the proximal thigh. The femoral vein demonstrates appropriate compressibility and waveform variability. The deep femoral vein demonstrates appropriate compressibility and waveform variability. The popliteal vein demonstrates appropriate compressibility and waveform variability. There is normal compressibility at the tibioperoneal trunk. Impression: No left femoropopliteal venous thrombosis. If clinical concern/symptoms persist or worsen, short-interval follow-up study is suggested. ATED BY: JORDAN GUILLAUME MD DICTATED DATE/TIME: 04/28/24 1008 SIGNED BY: JORDAN GUILLAUME MD SIGNED DATE/TIME: 04/28/24 1008 CC: X-Ray, Labs, Meds, VS Comment EXTERNAL NOTES: NONE LABS ORDERED: NONE REVIEWED AND INTERPRETED RESULTS: NONE IMAGING ORDERED: CV VENOUS DOPPLER LOW EXT LT INDEPENDENT HISTORIANS: PATIENT'S DAUGHTER. TREATMENTS ORDERED: NONE PATIENT'S CASE AND RESULTS HAVE BEEN DISCUSSED WITH THE ED ATTENDING PHYSICIAN AND THEY AGREE WITH MY PLAN OF CARE. I HAVE DISCUSSED IMAGING RESULTS WITH THE PATIENT AND HAVE INSTRUCTED THE PATIENT TO FOLLOW UP WITH THEIR PCP IN 1-2 DAYS. THE PATIENT FULLY UNDERSTANDS THEIR RESULTS AND ARE AWARE THEY NEED TO FOLLOW UP WITH THEIR PCP FOR FURTHER EVALUATION IF THEIR SYMPTOMS PERSIST. Images Reviewed?: Images reviewed and evaluated by me Time of 1ST Reevaluation: 11:12 Reevaluation 1ST: Improved Patient Education/Counseling: Diagnosis, Treatment, Need For Follow Up Family Education/Counseling: Diagnosis, Treatment, Need For Follow Up Medical Screening: No EMC Exist At This Time Departure 1 Departure Time of Disposition: 11:20 Impression: Primary Impression: Postoperative pain Additional Impression: No deep vein thrombosis (DVT) Disposition: 01 HOME / SELF CARE / HOMELESS Condition: Stable Additional Instructions: FOLLOW-UP WITH PCP IN 1 TO 2 DAYS. TAKE MEDICATIONS PRESCRIBED. RETURN TO ED FOR ANY NEW OR WORSENING SYMPTOMS. e-Prescriptions Acetaminophen (Tylenol 8 Hour Arthritis) 650 Mg Tab 650 MG PO TID, #30 TAB Prov: RAMIRO MEDINA 04/28/24 Discharged With: Self, Relative Critical Care Note Critical Care Time?: No Stability Stability form required: No I personally scribed for RAMIRO MEDINA ([email or web address]) on 04/28/24 at 11:08. Electronically submitted by Logan Conteh ([email or web address]). RAMIRO MEDINA Apr 28, 2024 11:08
== END 2024-04-28 11:18 | disposition home or self-care (01) ==
LOC: ER 09:01
DX: G89.18 Other acute postprocedural pain (principal); M25.562 Pain in left knee; I10 Essential (primary) hypertension; E11.9 Type 2 diabetes mellitus without complications; E78.5 Hyperlipidemia, unspecified; E03.9 Hypothyroidism, unspecified; Z79.84 Long term (current) use of oral hypoglycemic drugs; Z79.899 Other long term (current) drug therapy; Z90.49 Acquired absence of other specified parts of digestive tract; Z96.652 Presence of left artificial knee joint; Z98.890 Other specified postprocedural states; Z88.0 Allergy status to penicillin; Z88.5 Allergy status to narcotic agent
CPT/HCPCS: 93971

== ENCOUNTER 2025-04-16 07:31 | Day surgery (SDC) | payer OTHER, MEDICAID ==
[~2025-04-16] VITALS: Ht 139.7 cm; Wt 85.3 kg
[~2025-04-16 07:31] MED LIST changes: +ACET-1080 PO; -ACET-1881 PO; -ALBU2TAB11 PO; -ALEN70TA74 PO; -AMLO1TAB23 PO; -CHL4PW PO; -CHOL20007 PO; -CLON0.5T3 PO; +CYAN-17 PO; -CYCL-839 PO; -FER325T PO; -FURO1TAB33 GT; +FURO40TA4 PO; -LEVO250T58 PO; +METH-928 PO; -METO25TA5 PO; +MULT1TAB28 PO; -OMEG-20 PO; +OMEP-448 PO; -PANT1INJ3 PO; +PRED20TA2 PO; +PREG25CA28 PO; -PREG50CA PO; -VALS1TAB56 PO
[2025-04-16 07:50] VITALS: TEMP 97.3
[2025-04-16] MEDS ORDERED: MIDAZOLAM HCL 2MG/2ML 2ml VIAL (1mg/ml) ONE (08:12)
[2025-04-16] MEDS ORDERED: ONDANSETRON HCL 4 MG/2 ML VIAL ONE ×2 (08:12→10:11)
[2025-04-16] MEDS ORDERED: GLYCOPYRROLATE 0.2 MG/ML 1ML VIAL ONE (08:12)
[2025-04-16] MEDS ORDERED: PROPOFOL 10 MG/ML 20 ML IV ONE (08:12)
[2025-04-16] MEDS ORDERED: KETAMINE 50mg/ML 1ml syringe ONE (08:12)
[2025-04-16] MEDS: ceFAZolin 2 GM/D5W50ml 50 ML IV ONE (08:41)
[2025-04-16] MEDS: LIDOCAINE W/ EPINEPHRINE 1% 20ML VIAL ONE (09:02)
[2025-04-16 09:25] VITALS: PULSE 70; RESP 12; O2SAT 99
[2025-04-16] MEDS ORDERED: ACCU-CHEK COMFORT CURVE STRIP VI ONE (09:30)
--- NOTE | 2025-04-16 09:33 | DVHOP2 ---
Operative Report - 2 Report Details Date: 04/16/25 Preop Diagnosis: vision changes right eye Postop Diagnosis: S/P RIGHT TEMPORAL ARTERY BIOPSY Surgeon: Wolfgang Carlos MD Anesthesiologist: drew Anesthesia: Mac Consent: The patient was informed of the risks and benefits of the procedure. These include but are not limited to complications of anesthesia, postoperative infection, incomplete relief of symptoms, recurrence of symptoms, damage to blo od vessels, nerves and tendons, deep venous thrombosis, pulmonary embolism and possible need for repeat surgery in the future. Estimated Blood Loss: less than 1 ml Name of Procedure Performed right temporal artery biopsy Procedure Details Procedure Details: The patient was identified in the preop holding. She was consented in preop by myself shows provided to the operating room posterior from table supine position after induction of anesthesia. The patient was prepped and draped normal surgical fashion. Time-out was performed. Antibiotics were given. A incision was made directly over the right temporal artery prior to this 1% lidocaine with epi was injected over this area. Dissection was taken down through the temporal fascia to identify the temporal artery temporal artery was then skeletonized proximally distally proximally 2 cm in length. The temporary was then ligated with 3-0 silk sutures proximally and distally. Specimen was sent off for pathology. Wound was then irrigated out wounds closed with a deep layer of 3-0 Vicryl suture followed by skin closure with 4-0 Monocryl subcuticular suture followed by Dermabond. The patient woke with a any difficulties taken to PACU in stable condition. Specimen: right temporal artery Condition Good Disposition Home WOLFGANG CARLOS Jr., MD Apr 16, 2025 09:33
[2025-04-16] MEDS: HYDROmorphone HCL 2 MG/ML VL/or syr IV PRN (09:48)
[2025-04-16] MEDS: ONDANSETRON HCL 4 MG/2 ML VIAL IV ONE (10:11)
[2025-04-16 10:30] VITALS: BP 148/50; PULSE 65; RESP 16; O2SAT 94
== END 2025-04-16 10:36 | disposition home or self-care (01) ==
LOC: SUR 07:31
PROVIDERS: ATTEND Surgery Vascular Surgery
DX: R51.9 Headache, unspecified (principal); E66.9 Obesity, unspecified; I12.9 Hypertensive chronic kidney disease with stage 1 through stage 4 chronic kidney disease, or unspecified chronic kidney disease; E11.22 Type 2 diabetes mellitus with diabetic chronic kidney disease; N18.30 Chronic kidney disease, stage 3 unspecified; Z79.899 Other long term (current) drug therapy; Z88.0 Allergy status to penicillin; Z88.8 Allergy status to other drugs, medicaments and biological substances; Z79.890 Hormone replacement therapy; Z98.891 History of uterine scar from previous surgery; Z68.42 Body mass index [BMI] 45.0-49.9, adult; Z87.11 Personal history of peptic ulcer disease; Z90.49 Acquired absence of other specified parts of digestive tract; Z79.84 Long term (current) use of oral hypoglycemic drugs
CPT/HCPCS: 37609; 82962; 88305; 88313; J0690; J1171; J2250; J2405; J2704